=== PATIENT | female | born 1955 | race Caucasian/White ===

== ENCOUNTER 2016-03-18 23:55 | Inpatient (IN) | payer MEDICAID ==
[~2016-03-18] VITALS: Ht 167.6 cm; Wt 70.9 kg
[2016-03-19 01:17] LABS: HEMATOCRIT 41.8 % (36.0-48.0); HEMOGLOBIN 15.1 g/dL (12-16); LYMPHOCYTES 19.1 % (15-50); MCH 33.1 pg (26.0-34.0); MCHC 36.1 g/dL (31.0-37.0); MCV 91.7 fL (80.0-100.0); MEAN PLATELET VOLUME 9.7 fL (7.4-10.4); NEUTROPHILS 67.4 % (40-80); PLATELET COUNT 210 10x3/uL (130-400); RBC 4.56 10x6/uL (4.00-5.40); RDW 12.8 % (11.5-14.5); WBC 8.7 10x3/uL (4.8-10.8)
[2016-03-19 01:31] LABS: ALKALINE PHOSPHATASE 74 U/L (46-116); ALT (SGPT) 89 U/L (10-68); BILIRUBIN - TOTAL 0.63 mg/dL (0.2-1.3); CALC OSMOLALITY 263 mosm/kg (275-300); CALCIUM 9.2 mg/dL (8.5-10.1); CARBON DIOXIDE 28.4 mmol/L (21.0-32.0); CHLORIDE - SERUM 97 mmol/L (98-107); CREATININE - SERUM 0.6 mg/dL (0.6-1.3); GLUCOSE 99 mg/dL (74-106); POTASSIUM - SERUM 4.2 mmol/L (3.5-5.1); PROTEIN - SERUM 8.6 g/dL (6.4-8.2); SODIUM 133 mmol/L (136-145); UREA NITROGEN 6 mg/dL (7-18); eGFR NON AFRICAN AMERICAN > 90 mL/min (90-120)
[2016-03-19 02:54] LABS: MAGNESIUM - SERUM 1.8 mg/dL (1.8-2.4)
[2016-03-19 03:02] VITALS: BP 139/83
--- NOTE | 2016-03-19 03:02 | NUR ---
RCVD THIS 60 Y/O FEMALE FROM [facility] WITH C/O COPD EXACERBATION. PT REPORTS DRINKING A 30 PACK OF BEER PER DAY AND HAS NOT HAD HER "USUAL" TODAY. PT IS SEDATED AND DOZES OFF FREQUENTLY WHILE SPEAKING. PT IS EASILY AWAKENED WITH VERBAL STIMULI. PERRLA. PPP, S1, S2. BOWEL SOUNDS ACTIVE X4. SKIN WARM & DRY. SINGLE FURROWED TONGUE, MUCOUS MEMBRANES MOIST & PINK. CAP REFILL >3 SECONDS UPPER AND LOWER. EXPIRATORY WHEEZING NOTED IN ALL LOBES. RHONCHI NOTED ALSO NOTED IN ALL LOBES. RETRACTIONS NOTED ON INSPIRATION. WEAKNESS NOTED IN ALL EXTREMITIES. PT UP TO VOID AT THIS TIME. UNSTEADY GAIT, PT UNABLE TO STAND ON HER OWN WITHOUT NURSE ASSISTANCE. ADVISED PT TO CALL FOR ASSISTANCE WHEN GETTING UP. PT VERBALIZES UNDERSTANDING. SPOUSE AT BEDSIDE AT THIS TIME. PT DENIES PAIN. COLA PROVIDED PER PT REQUEST. BED LOW, WHEELS LOCKED, CL IN REACH. SIDE RAILS UP X2. BED ALARM IN PLACE PER FALL PRECAUTION PROTOCOL.
[2016-03-19 04:06] VITALS: BP 139/83; BMI 23.9
--- NOTE | 2016-03-19 05:21 | NUR ---
LEVAQUIN IVPB AND LIBRIUM X1 CAP GIVEN PER ORDERS. SEE EMAR. PT DENIES FURTHER NEEDS AT THIS TIME. WILL CONTINUE TO MONITOR.
--- NOTE | 2016-03-19 06:55 | NUR ---
LEVAQUIN FINISHED INFUSING, NS RESTARTED AT 50ML TO FLUSH LINE
--- NOTE | 2016-03-19 07:00 | NUR ---
SHIFT REPORT TO DAY SHIFT
--- NOTE | 2016-03-19 07:05 | NUR ---
PT KENNEL WORKER LIGHT, PT PULLED IV OUT, PUMP TURNED OFF, CHANGED PINK PAD, TOP SHEET, BLANKET, AND GOWN DUE TO BLOOD, TIP OF IV INTACT, PRESSURE HELD, BANDAID APPLIED, PT REQUESTED AND SERVED COLA, BED ALARM REATTACHED AND WORKING PROPERLY, PT DENIES FURTHER NEEDS
--- NOTE | 2016-03-19 07:15 | NUR ---
PT WAS RECEIVED THIS AM LYING IN BED. SHE OFFERS NO COMPLAINTS. PT ACCIDENTLY PULLED HER IV OUT AND NEEDS TO BE RESTARTED. SHE IS AWAKE AND ALERT. LUNGS WITH WHEEZING BILATERALLY. HEART- RRR. ABD- SOFT, NONTENDER. BS+. LOWER EXTREMITIES NO EDEMA. FEET WITH REDNESS AND DRY SKIN. PT STATES THAT HER FEET HAVE BEEN LIKE THIS ALL OF HER LIFE. BED IS LOW. CALL LIGHT IN REACH AND SIDE RAILS UP X 2.
--- NOTE | 2016-03-19 07:30 | NUR ---
RESPIRATORY THERAPY HERE TO GIVE PT A BREATHING TREATMENT.
[2016-03-19 08:55] VITALS: Ht 167.6 cm; Wt 70.9 kg
--- NOTE | 2016-03-19 09:08 | NUR ---
NEW IV STARTED BY KENNETH GARY FROM [facility]. SITED IN LEFT FOREARM. NS AT [facility].
--- NOTE | 2016-03-19 09:10 | NUR ---
PT IS UP TO BATHROOM. BED ALARM REMOVED. ASSISTED PT TO THE BATHROOM. PT VOIDED. REATTACHED BED ALARM.
--- NOTE | 2016-03-19 10:31 | NUR ---
PT IS LYING IN BED. HER MOTHER IN LAW CALLED. CALL WAS TRANSFERRED. BED IS LOW, SIDE RAILS UP X 2 AND CALL LIGHT IN REACH. BED ALARM IS ON.
--- NOTE | 2016-03-19 12:00 | NUR ---
VANDANA HANKS, [employer] WITH DR MARC CAME BY TO SEE PT.
--- NOTE | 2016-03-19 13:03 | NUR ---
PT ASSISTED UP TO BATHROOM TO VOID. UNPLUGGED ALARM. PT BACK TO BED. REACTIVATED BED ALARM.
--- NOTE | 2016-03-19 13:07 | NUR ---
PT IS RESTING IN BED. OFFERS NO COMPLAINTS. BED IS LOW, SIDE RAILS UP X 2 AND CALL LIGHT IN REACH.
--- NOTE | 2016-03-19 13:40 | NUR ---
DR MARC IS HERE TO SEE PT. NEW ORDERS REVIEWED.
--- NOTE | 2016-03-19 14:30 | NUR ---
PHYSICAL THERAPY HERE TO WALK PT. PT TOLERATED WELL.
--- NOTE | 2016-03-19 16:02 | NUR ---
PTS FAMILY IS HERE TO SEE HER. PT IS HAPPY TO SEE THEM.
--- NOTE | 2016-03-19 18:03 | NUR ---
PT IS DOING WELL. OFFERS NO COMPLAINTS. BED IS LOW. CALL LIGHT IN REACH AND SIDE RAILS UP X 2.
--- NOTE | 2016-03-19 18:55 | HP ---
PATIENT: ALANNA RAPP MEDICAL RECORD: [id number] ACCOUNT: [id number] LOCATION:[id number] : 57 ADMISSION DATE: 03/19/16 HISTORY AND PHYSICAL EXAMINATION HISTORY OF PRESENT ILLNESS: Ms. Rapp is a 60-year-old white female patient of mine with ongoing tobacco and alcohol abuse. She presents with worsening shortness of breath, was seen in the clinic a few weeks ago and really has not gotten over it. She has continued to smoke. She drinks about 12-15 beers a day. Chest x-ray in the Emergency Room reveals no definite infiltrates, but she has failed outpatient. She is admitted with acute exacerbation of her COPD. She smokes about 2 packs per day. PAST MEDICAL HISTORY: Significant for known COPD, alcohol abuse, and tobacco abuse. ALLERGIES: None known. HOME MEDICATIONS: Include albuterol inhaler. FAMILY HISTORY: Noncontributory. SOCIAL HISTORY: The patient is . She admits to alcohol and tobacco abuse. REVIEW OF SYSTEMS: She has not had any fever. She has had some chills. She denies any chest pain. Worsening shortness of breath and wheezes. PHYSICAL EXAMINATION: GENERAL: She is comfortable at rest. She states that she gets pretty short-winded when she walks to the bathroom. HEENT: Sclerae nonicteric. HEART: Regular. LUNGS: With diminished breath sounds with some scattered wheezes. ABDOMEN: Soft. EXTREMITIES: Lower extremities reveal some rubor, no edema. SKIN: Reveals multiple tattoos. IMPRESSION: Chronic obstructive pulmonary disease exacerbation, tobacco abuse, and alcohol abuse. PLAN: IV antibiotics. Pulmonary toilet. Add inhaled long-acting beta agonist and inhaled steroids. Start some systemic steroids, i.e. Solu-Medrol. Deep venous thrombosis prophylaxis. Discussed smoking and alcohol cessation, which unfortunately, I think her chances of quitting are pretty small right now. See orders for rest of plan. TRANSINT:[id number] Voice Confirmation ID: [id number] DOCUMENT ID: [id number] HISTORY AND PHYSICAL [id number] ALANNA RAPP TORRIE MARC DO at 0259 CC: [id number] DICTATION DATE: 03/19/16 1407 LOAN APPROVER: 03/19/16 1434 ADM IN [facility] [address] [id number]
--- NOTE | 2016-03-19 19:20 | NUR ---
PM ROUNDS MADE, PT EATING ORANGE SHERBERT AND WATCHING TV, INFORMED PT THAT I WILL BE BACK SHORTLY TO DO ASSESSMENT, PT VERBALIZES UNDERSTANDING, DENIES NEEDS OR PAIN AT THIS TIME
--- NOTE | 2016-03-19 20:10 | NUR ---
RESP IN ROOM FOR TREATMENT
[2016-03-19 20:21] VITALS: BP 141/82
--- NOTE | 2016-03-19 20:25 | NUR ---
RESP FINISHED WITH TREATMENT, ASSESSMENT PER FLOW SHEET, IV IN LEFT FA INTACT WITH NO REDNESS OR EDEMA INFUSING BANANA BAG, SEE EMAR, VIA PUMP AT 125 ML/HR, PT REPORTS FLATUS, BM TODAY AND VOIDING BY SELF WITH NO DIFFICULTY, PT DENIES ANY NEEDS OR PAIN AT THIS TIME
--- NOTE | 2016-03-19 21:15 | NUR ---
PT RESTING WITH EYES CLOSED, RESP QUIET, NO DISTRESS NOTED, LEFT UNDISTURBED AT THIS TIME
--- NOTE | 2016-03-19 22:13 | NUR ---
PT RESTING WITH EYES CLOSED, AROUSES TO SOFT VERBAL STIMULATION, ADM LIBRIUM PO PER MD ORDERS WITH FRESH H20, SEE EMAR, PT DENIES NEEDS OR PAIN AT THIS TIME
--- NOTE | 2016-03-19 22:55 | NUR ---
ADM SOLUMEDROL SIVP PER MD ORDERS, SEE EMAR, PT REQUESTED AND PROVIDED EXTRA BLANKET, PT DENIES FURHTER NEEDS OR PAIN
--- NOTE | 2016-03-19 23:32 | NUR ---
PT DISTRICT PLANT SUPERINTENDENT LIGHT, PT GETTING READY FOR BED, REQUESTED BASSAM CABAN AND TO SEND BABY BACK TO NSY, BABY TO NSY VIA OPEN CRIB CART PER THIS RN, VS OBTAINED, SCD'S PLACED AND WORKING PROPERLY, PT DENIES FURTHER NEEDS
[2016-03-20 00:10] VITALS: BP 138/87
--- NOTE | 2016-03-20 00:10 | NUR ---
PT RESTING WITH EYES CLOSED, AROUSES TO SOFT VERBAL STIMULATION, VS OBTAINED, PT DENIES NEEDS OR PAIN
--- NOTE | 2016-03-20 02:40 | NUR ---
PT RESTING WITH EYES CLOSED, AROUSES TO SOFT VERBAL STIMULATION, TELEMETRY PLACED, PT DENIES NEEDS OR PAIN
--- NOTE | 2016-03-20 02:47 | NUR ---
SPOKE TO ZAY, REDEVELOPMENT SPECIALIST, HR 73 AND SINUS RHYTHM
[2016-03-20 04:41] VITALS: BP 148/79
--- NOTE | 2016-03-20 04:41 | NUR ---
PT RESTING WITH EYES CLOSED, AROUSES TO SOFT VERBAL STIMULATION, VS OBTAINED, ADM LIBRIUM PO PER MD ORDERS, SEE EMAR, PT REQUESTED AND SERVED COLA, DENIES FURTHER NEEDS
--- NOTE | 2016-03-20 05:55 | NUR ---
PT UP TO BR, VOIDED BY SELF WITH NO DIFFICULTY, REQUESTED AND PROVIDED ALOE VESTA, WASH CLOTHS, TOWELS, CLEAN GOWN AND FRESH PINK PAD, PT TO BEDSIDE SCALE, WEIGHT 144, PT BACK TO BED
--- NOTE | 2016-03-20 06:13 | NUR ---
SALINE LOCK CONVERTED TO IV, FLUSHED, NS HUNG, INFUSING VIA PUMP AT 50 ML/HR, ADM SOLUMEDROL SIVP PER MD ORDERS, LEVAQUIN STARTED AFTER SOLUMEDROL, ADM PROTONIX PO PER MD ORDERS, SEE EMAR, FRESH COLA SERVED, PT DENIES FURTHER NEEDS OR PAIN
--- NOTE | 2016-03-20 07:00 | NUR ---
SHIFT REPORT TO DAY SHIFT
[2016-03-20 07:18] LABS: BASOPHILS 0 % (0.0-2.0); EOSINOPHILS 0 % (0-7); HEMOGLOBIN 13.8 g/dL (12-16); IMMATURE GRANULOCYTES 0.2 % (0-5); LYMPHOCYTES 8.5 % (15-50); MCH 32.6 pg (26.0-34.0); MCHC 34.5 g/dL (31.0-37.0); MEAN PLATELET VOLUME 9.9 fL (7.4-10.4); MONOCYTES 9.6 % (2-11); NEUTROPHILS 81.7 % (40-80); PLATELET COUNT 237 10x3/uL (130-400); RBC 4.23 10x6/uL (4.00-5.40); RDW 12.7 % (11.5-14.5); WBC 9.3 10x3/uL (4.8-10.8)
[2016-03-20 07:19] LABS: MCV 94.6 fL (80.0-100.0)
[2016-03-20 07:48] LABS: ALBUMIN 3.4 g/dL (3.4-5.0); ALKALINE PHOSPHATASE 62 U/L (46-116); ALT (SGPT) 69 U/L (10-68); CALCIUM 8.4 mg/dL (8.5-10.1); CARBON DIOXIDE 28.8 mmol/L (21.0-32.0); CHLORIDE - SERUM 99 mmol/L (98-107); CREATININE - SERUM 0.7 mg/dL (0.6-1.3); POTASSIUM - SERUM 3.6 mmol/L (3.5-5.1); PROTEIN - SERUM 7.7 g/dL (6.4-8.2); SODIUM 135 mmol/L (136-145); eGFR NON AFRICAN AMERICAN > 90 mL/min (90-120)
[2016-03-20 07:49] LABS: CALC OSMOLALITY 273 mosm/kg (275-300); GLUCOSE 187 mg/dL (74-106); UREA NITROGEN 9 mg/dL (7-18)
--- NOTE | 2016-03-20 08:00 | NUR ---
PATIENT IS AWAKE AND ALERT, SITTING UP IN HI FOWLERS AT THIS TIME. SHE DENIES UNCONTROLLED PAIN.
--- NOTE | 2016-03-20 10:05 | NUR ---
FERCHO GIVEN HER MORNING MEDICATIONS AND SCD'S REMOVED SO THAT SHE CAN BE UP TO THE RESTROOM.
--- NOTE | 2016-03-20 11:15 | NUR ---
PATIENT RECEIVING UD. FRUSTERATED BY HER HEART MONITOR ELECTROBES. REPLACED ELECTROBES, REARRANGED GOWN, AND STRAIGHTENED BED. SHE IS FIDGITY AND TEARFUL. STATES THAT SHE JUST WANTS A CIGARETTE. OFFERED TO OBTAIN A NICOTINE PATCH. SHE STATES THAT THEY DON'T WORK FOR HER. OFFERED A STRAW TO GO WITH IT FOR MECHANICAL SATISFACTION.
--- NOTE | 2016-03-20 12:30 | NUR ---
DISCUSSED TAKING A SHOWER. SHE SAID THAT SHE HAS CLEANED UP AT THE SINK AND DECLINES TOILETRIES AT THIS TIME. HER IS GOING TO BRING HER SOME THINGS FROM HOME LATER THIS AFTERNOON WELL.
--- NOTE | 2016-03-20 14:00 | NUR ---
HERE TO ASSESS. FERCHO TEACHING REGARDING PROHIBITION TOWARD SMOKING ON THE PROPERTY REINTERATED. SHE VOICED UNDERSTANDING.
--- NOTE | 2016-03-20 15:30 | NUR ---
PATIENT UP TO THE SINK WHERE SHE WASHED HER HAIR. SHE STATES THAT SHE DOESN'T FEEL LIKE SHE HAS THE ENDURANCE FOR A SHOWER. OFFERED HER A SHOWER STOOL. DECLINED. SPOUSE HAS DELIVERED HER BELONGINGS. HER MOTHER IS ALSO PRESENT.
--- NOTE | 2016-03-20 16:32 | NUR ---
SEVERAL OF HER CHILDREN ARE HERE VISITING. SHE HAS 5 LIVING CHILDREN, PLUS THEIR SPOUSES. HER OLDEST DAUGHTER LIVES IN [place]. SHE DENIES NEEDS. THEY HAVE BROUGHT HER TAKE OUT FOR SUPPER.
[2016-03-20] MEDS ORDERED: SPIRIVA18 MCG INH (17:56)
[2016-03-20] MEDS ORDERED: VENTOLIN HFA18 GM INH (17:57)
[2016-03-20] MEDS ORDERED: PROVENTIL/2.5 MG/3 M INH (17:58)
--- NOTE | 2016-03-20 18:03 | NUR ---
NEBULIZER AND O2 FROM [facility]. FERCHO TAKES RESP MEDICATIONS ONLY. FROM [facility].
[2016-03-20 19:15] VITALS: BP 165/93
--- NOTE | 2016-03-20 19:16 | NUR ---
RCVD PT FROM DAY SHIFT RN. PT SITTING UP IN BED. FAMILY AT BEDSIDE. PT DENIES PAIN AT THIS TIME. BREATH SOUNDS CLEAR/DIMINISHED IN ALL LOBES. AAOX4. S1, S2. PT CURRENTLY ON TELEMETRY DUE TO SOLU MEDROL USE. TELEMETRY SHOWS 97 SINUS RHYTHM. BOWEL SOUNDS ACTIVE X4. PPP. CAP REFILL >3 SECONDS. PT CURRENTLY ON 02 @ 2L VIA NC. SKIN WNL, W/D/I. PT VOIDING WITH MINIMAL ASSITANCE WITH AMBULATION ALTHOUGH STILL UNSTEADY GAIT. PT DENIES NEEDS AT THIS TIME. WILL CONTINUE TO MONITOR. BED LOW. WHEELS LOCKED. CL IN REACH. SIDE RAILS UP X2.
--- NOTE | 2016-03-20 20:42 | NUR ---
PT SITTING UP IN BED. FAMILY AT BEDSIDE. PT REQUESTS ROOM DOOR BE LEFT OPEN. PT REQUESTS & RECEIVES MESH PANTIES AND PADS. PT DENIES FURTHER NEEDS AT THIS TIME.
--- NOTE | 2016-03-20 21:30 | NUR ---
RN TO BEDSIDE. SOLUMEDROL AND LIBRIUM GIVEN PER ORDERS. SEE EMAR. PT DENIES FURTHER NEEDS AT THIS TIME. WILL CONTINUE POC.
[2016-03-21 00:09] VITALS: BP 158/83
--- NOTE | 2016-03-21 00:38 | NUR ---
PT COUGHING, RN TO ROOM. PT UPSET WITH VISITORS WHO SHE STATES ARE HER SON'S AND KEEP ARGUEING. VISITORS ASK TO LEAVE ROOM D/T PT BEING, ONE SON LEFT VOLUNTARILY. PT INCONTINENT OF BLADDER. ASSIST TO BATHROOM, PT WASH TU AREA, RN CLEANSED BACK. GOWN AND LINEN CHANGE DONE. PT BACK TO BED RESTING COMFORTABLY AT THIS TIME. PT REQUESTED ATIVAN D/T "FEELING REALLY ANXIOUS." UNABLE TO PULL MED FROM [facility], HS NOTIFIED AND TO FLOOR TO ASSIST RN WITH OBTAINING ATIVAN PER ORDERS. ORDER SENT TO MED/SURG [facility]. RN AND AUDIT REVIEWER TO MED/SURG TO GET MEDICATION.
--- NOTE | 2016-03-21 00:59 | NUR ---
PT RESTING WITH EYES CLOSED UPON RN ENTERING ROOM. OPENED EYES, STATES THAT SHE CONTINUES TO FEEL ANXIOUS. ATIVAN GIVEN SIVP OVER 4 MINUTES VIA LEFT FOREARM PIV.
--- NOTE | 2016-03-21 03:54 | NUR ---
RN TO BEDSIDE. PT LYING ON LT SIDE. EYES CLOSED. RESP EVEN & UNLABORED. PT WOKEN TO TAKE LIBRIUM PER ORDERS. SEE EMAR. PT TOLERATED WELL. PT DENIES FURTHER NEEDS. WILL CONTINUE TO MONITOR.
[2016-03-21 04:18] VITALS: BP 145/68
--- NOTE | 2016-03-21 04:18 | NUR ---
ROUNDS MADE. V/S ASSESSED AT THIS TIME. PT WAKES WITH VERBAL AND PHYSICAL STIMULI. PT DENIES NEEDS AT THIS TIME. WILL CONTINUE TO MONITOR.
--- NOTE | 2016-03-21 05:30 | NUR ---
PROTONIX AND LEVAQUIN GIVEN PER ORDERS. SEE EMAR. PT CONFUSED UPON AWAKENING AND TRIES TO PULL IV LINE OFF. PT ORIENTED TO TIME AND PLACE. AFTER 5 MINS PT APPEARS ORIENTED AND IS MORE AWAKE. PT DENIES FURTHER NEEDS AT THIS TIME.
--- NOTE | 2016-03-21 05:48 | NUR ---
PT FAMILY MEMBER TO DESK REPORTING THAT BED IS "SOAKED." WILL CHANGE LINENS AT THIS TIME.
--- NOTE | 2016-03-21 06:03 | NUR ---
CLEAN LINENS, GOWN PROVIDED AT THIS TIME. INCONTINENT OF BLADDER. PANTIES AND PADS PROVIDED. PT BACK TO BED. SCD'S ON, CONNECTED TO PUMP AND PUMP FUNCTIONING. PT DENIES FURTHER NEEDS AT THIS TIME.
[2016-03-21 07:15] VITALS: BP 169/99
--- NOTE | 2016-03-21 07:15 | NUR ---
PT AMBULATES BACK TO BED FROM BR. MANDY ACTIVITY WELL. SCDS BACK ON BLE. PUMP ON. VSS. PT REQUESTS AND RECEIVES COLA.
--- NOTE | 2016-03-21 08:00 | NUR ---
PT AWAKE, ALERT, ORIENTED, SITTING UP IN BED, SON AT BEDSIDE. ALARM ON. TELEMETRY SHOWING SR HR 97. NO NEEDS AT THIS TIME. REG DIET PROVIDED.
--- NOTE | 2016-03-21 08:33 | NUR ---
RT HERE FOR UPDRAFTS.
--- NOTE | 2016-03-21 09:08 | NUR ---
IV SITE IN LEFT WRIST LEAKING, PAINFUL. D/C'D CATH INTACT. RESITED IN RIGHT FOREARM WITH #20 X 1. AM MEDS GIVEN. PT REFUSED NICTINE PATCH.
--- NOTE | 2016-03-21 09:55 | NUR ---
SITTING UP IN BED, 02 ON AT 2L. COUGHING INTERMITTENTLY.
--- NOTE | 2016-03-21 10:37 | NUR ---
PT CONTINUES TO SIT UP IN BED. FAMILY AT BEDSIDE.
--- NOTE | 2016-03-21 10:54 | NUR ---
PT ASKS TO GO OFF UNIT IN WHEELCHAIR. LEAVES UNIT ACCOMPANIED BY FAMILY. ADVISED WOULD NOT REC SMOKING.
--- NOTE | 2016-03-21 11:25 | NUR ---
PT RET'S TO UNIT VIA W/C. UP AND ABOUT IN ROOM.
--- NOTE | 2016-03-21 11:49 | NUR ---
PT RET'D TO BED, SCD'S IN PLACE.
--- NOTE | 2016-03-21 11:58 | NUR ---
PT LINENS CHANGED, CLEAN GOWN AND UNDERWEAR PROVIDED.
--- NOTE | 2016-03-21 12:07 | NUR ---
REG DIET SERVED.
--- NOTE | 2016-03-21 13:21 | NUR ---
VANDANA HANKS, SIMIN, HERE TO VISIT.
--- NOTE | 2016-03-21 13:54 | NUR ---
IV FLUIDS CONNECTED TO EXISTING SL ORDERED.
--- NOTE | 2016-03-21 14:48 | NUR ---
IVF RATE DECREASED TO 75CC/HR PER ORDER.
[2016-03-21 15:22] VITALS: BP 172/88
--- NOTE | 2016-03-21 15:23 | NUR ---
PT SITTING UP IN BED. O2 ON @2L PER N/C. MOUTH SWABS PROVIDED.
--- NOTE | 2016-03-21 16:05 | NUR ---
RT HERE FOR UPDRAFT.
--- NOTE | 2016-03-21 17:18 | NUR ---
REG DIET PROVIDED. FAMILY VISITING.
--- NOTE | 2016-03-21 17:45 | NUR ---
RT HERE FOR TREATMENTS.
--- NOTE | 2016-03-21 18:05 | NUR ---
PT C/O BEING HOT. SIMONE FIGUEROA.
--- NOTE | 2016-03-21 18:14 | NUR ---
PT UP TO W/C AND OFF UNIT WITH FAMILY.
--- NOTE | 2016-03-21 19:00 | NUR ---
BACK IN HER ROOM.
[2016-03-21 19:15] VITALS: BP 158/93
--- NOTE | 2016-03-21 19:15 | NUR ---
INTRODUCED SELF. V/S TAKEN. BP 158/93. ASSESSMENT DONE. STATUS Dx: EXACERBATION OF COPD / ETOH ABUSE. ON IVF NS + VITAMINS TO R FA @ 75cc/hr. IV SITE OK. O2 SAT 100% @ 2L/NC. SCD's ON TO BOTH LOWER EXTREMITIES TO PREVENT DVT. ON TELEMETRY--SINUS RHYTHM. DENIES PAIN AT THIS TIME. BREATH SOUNDS WITH EXPIRATORY WHEEZES TO BOTH LOWER LOBES.
--- NOTE | 2016-03-21 22:01 | NUR ---
EYES CLOSED. AWAKEN FOR MEDICATION. SEE E-MAR.
[2016-03-21 23:30] VITALS: BP 141/68
--- NOTE | 2016-03-21 23:30 | NUR ---
V/S RECHECKED--BP 141/68. RT HERE TO GIVE BREATHING TREATMENT.
--- NOTE | 2016-03-22 02:48 | NUR ---
RT HERE TO GIVE UPDRAFT BREATHING TREATMENT.
[2016-03-22 04:06] VITALS: BP 147/90
--- NOTE | 2016-03-22 04:06 | NUR ---
LIBRIUM 25mg 1cap GIVEN SCHED. SEE E-MAR. V/S STABLE.
--- NOTE | 2016-03-22 04:35 | NUR ---
LEVAQUIN 750mg IVPB INFUSING. NO ADVERSE REACTION NOTED.
--- NOTE | 2016-03-22 06:00 | NUR ---
PROTONIX 40mg 1tab PO GIVEN. SEE E-MAR. SLEPT FAIRLY WELL DURING THE NIGHT. CONTINUING PLAN OF CARE.
--- NOTE | 2016-03-22 06:16 | NUR ---
IV CONVERTED TO SALINE LOCK. COMPUTER NETWORK AND SYSTEMS ENGINEER HERE TO DRAW AM LAB.
--- NOTE | 2016-03-22 06:31 | NUR ---
RT HERE FOR BREATHING TRATMENTS.
[2016-03-22 06:48] LABS: BASOPHILS 0 % (0.0-2.0); EOSINOPHILS 0.3 % (0-7); HEMATOCRIT 36.4 % (36.0-48.0); HEMOGLOBIN 12.3 g/dL (12-16); IMMATURE GRANULOCYTES 0.1 % (0-5); LYMPHOCYTES 30.4 % (15-50); MCH 32.6 pg (26.0-34.0); MCHC 33.8 g/dL (31.0-37.0); MEAN PLATELET VOLUME 9.7 fL (7.4-10.4); MONOCYTES 19.1 % (2-11); NEUTROPHILS 50.1 % (40-80); PLATELET COUNT 236 10x3/uL (130-400); RBC 3.77 10x6/uL (4.00-5.40); RDW 13.1 % (11.5-14.5); WBC 7.2 10x3/uL (4.8-10.8)
[2016-03-22 06:49] LABS: MCV 96.6 fL (80.0-100.0)
[2016-03-22 07:01] LABS: ALBUMIN 2.9 g/dL (3.4-5.0); ALKALINE PHOSPHATASE 46 U/L (46-116); ALT (SGPT) 84 U/L (10-68); BILIRUBIN - TOTAL 0.29 mg/dL (0.2-1.3); CALCIUM 8.3 mg/dL (8.5-10.1); CHLORIDE - SERUM 107 mmol/L (98-107); CREATININE - SERUM 0.6 mg/dL (0.6-1.3); PROTEIN - SERUM 6.4 g/dL (6.4-8.2); SODIUM 143 mmol/L (136-145); UREA NITROGEN 10 mg/dL (7-18); eGFR NON AFRICAN AMERICAN > 90 mL/min (90-120)
[2016-03-22 07:02] LABS: CALC OSMOLALITY 282 mosm/kg (275-300); GLUCOSE 85 mg/dL (74-106); POTASSIUM - SERUM 2.8 mmol/L (3.5-5.1)
--- NOTE | 2016-03-22 07:03 | NUR ---
LAB CALLS WITH CRITICAL POTASSIUM 2.8. WILL INITIATE ELECTROLYTE PROTOCOL.
[2016-03-22 07:15] VITALS: BP 173/101
--- NOTE | 2016-03-22 07:20 | NUR ---
PT AWAKE, ALERT, SITTING UP IN BED. INTERMITTENT COUGH. SL INTACT IN RIGHT FOREARM. SCD'S IN PLACE AND OPERATIONAL. EXP WHEEZING IN BOTH UPPER LOBES. 02 ON AT 2L PER NC. TELEMETRY SR HR 90. PT C/O DRY MOUTH. MOUTH SWABS AT BEDSIDE.
--- NOTE | 2016-03-22 08:27 | NUR ---
AM MEDS GIVEN. SEE EMAR.
--- NOTE | 2016-03-22 09:21 | NUR ---
PT ASKS FOR ADULT DIAPERS DUE TO INCONTINENT OF URINE WHEN COUGHS. PROVIDED.
--- NOTE | 2016-03-22 09:30 | NUR ---
OFFERED TO ASSIST PT TO SHOWER, SHE DECLINED, SAID SHE WAS CLEANING UP USING BATH CLOTHS.
--- NOTE | 2016-03-22 10:25 | NUR ---
PT RESTING ON RIGHT SIDE. COUGHING INTERMITTENTLY.
--- NOTE | 2016-03-22 11:08 | NUR ---
UPDRAFT DONE PER RT.
--- NOTE | 2016-03-22 12:11 | NUR ---
DIET SERVED. FAMILY AT BEDSIDE.
[2016-03-22 12:38] VITALS: BP 164/76
--- NOTE | 2016-03-22 13:00 | NUR ---
PT LEAVES UNIT WITH FAMILY VIA W/C.
--- NOTE | 2016-03-22 13:48 | NUR ---
RET'D TO ROOM VIA W/C.
--- NOTE | 2016-03-22 14:13 | NUR ---
IVF'S CONNECTED TO EXISTING SL IN RIGHT FOREARM. SITTING UP IN BED, FAMILY AT BEDSIDE.
--- NOTE | 2016-03-22 14:19 | NUR ---
DR. JIMENEZ IN TO SEE PT.
--- NOTE | 2016-03-22 16:35 | NUR ---
PT RESTING IN BED, EYES CLOSED, SNORING SOFTLY.
--- NOTE | 2016-03-22 17:07 | NUR ---
LAB HERE TO DRAW K+LEVEL.
--- NOTE | 2016-03-22 17:42 | NUR ---
PT TEARFUL, " I JUST WANT TO GO HOME." ASKED TO BE UNHOOKED FROM IV SO COULD GO TO FRONT OF HOSPITAL WITH SON, AND REQUESTED TO WAIT FOR HIM UP THERE WHILE HE WENT TO STORE. ADVISED NOT REC, WOULD NOT BE SAFE FOR HER. UP TO BR. BED PADS CHANGED, ADULT DIAPER LEAKED URINE PT HAD COUGHING EPISODE.
--- NOTE | 2016-03-22 17:52 | NUR ---
RT HERE FOR UPDRAFT.
--- NOTE | 2016-03-22 18:22 | NUR ---
PT RETURNS TO UNIT WITH SON. IVF'S RECONNECTED.
[2016-03-22 19:25] VITALS: BP 198/108
--- NOTE | 2016-03-22 19:25 | NUR ---
AWAKE DURING INITIAL ROUNDS. RE-INTRODUCED SELF. V/S TAKEN. BP 198/108. PATIENT "STRESSED" OVER SOME "FAMILY ISSUES." ASSESSMENT DONE. STATUS Dx: EXACERBATION OF COPD/ETOH ABUSE. IVF WITH MVI TO R FA @ 75cc/hr. IV SITE OK. O2 SAT 99% ON 2L/NC. TELEMETRY ON. SCD's TO BOTH LOWER EXTREMITIES. EXPIRATORY WHEEZES NOTED FROM BOTH LUNGS. FAMILY MEMBER IN THE ROOM.
--- NOTE | 2016-03-22 19:36 | NUR ---
RT HERE TO GIVE BREATHING TREATMENT.
--- NOTE | 2016-03-22 21:17 | NUR ---
SOLU-MEDROL 40mg SIVP GIVEN. SEE E-MAR.
--- NOTE | 2016-03-22 22:06 | NUR ---
LIBRIUM 25mg 1cap PO GIVEN SCHED EVERYU 6hrs. SEE E-MAR.
--- NOTE | 2016-03-22 22:45 | NUR ---
RT HERE TO GIVE BREATHING TREATMENT.
[2016-03-23] VITALS (8 sets, daily range): BP systolic 139–199; BP diastolic 75–110
--- NOTE | 2016-03-23 | NUR ---
EYES CLOSED. LEFT UNDISTURBED.
--- NOTE | 2016-03-23 02:33 | NUR ---
RT HERE TO GIVE BREATHING TREATMENT.
--- NOTE | 2016-03-23 03:00 | NUR ---
UP TO THE BATHROOM. VOIDED.
--- NOTE | 2016-03-23 03:10 | NUR ---
V/S TAKEN. BP ELEVATED--199/110. PT "STRESSED" OVER SOME FAMILY ISSUES. ENCOURAGED PT TO RELAX AND NOT STRESS HERSELF.
--- NOTE | 2016-03-23 03:40 | NUR ---
NURSING AUTOMATIC LATHE OPERATOR NOTIFIED OF PT's CONDITION AND TO GET A SECOND OPINION. SUGGESTED TO GIVE PT HER PRN ORDER FOR ATIVAN TO CALM HER DOWN. WENT WITH AUTOMATIC LATHE OPERATOR TO CUSTODIAL TO GET ATIVAN MEDICATION.
--- NOTE | 2016-03-23 04:00 | NUR ---
ATIVAN 1mg SIVP GIVEN FOR "ANXIETY." LIBRIUM 25mg PO GIVEN SCHED EVERY 6hrs. SEE E-MAR.
--- NOTE | 2016-03-23 04:03 | NUR ---
BP 179/103.
--- NOTE | 2016-03-23 05:55 | NUR ---
STONE LAYOUT MARKER HERE TO DRAW AM LAB.
[2016-03-23 06:23] LABS: BASOPHILS 0 % (0.0-2.0); EOSINOPHILS 0 % (0-7); HEMATOCRIT 37.4 % (36.0-48.0); HEMOGLOBIN 12.5 g/dL (12-16); IMMATURE GRANULOCYTES 0.4 % (0-5); LYMPHOCYTES 12.7 % (15-50); MCH 32.3 pg (26.0-34.0); MCHC 33.4 g/dL (31.0-37.0); MCV 96.6 fL (80.0-100.0); MEAN PLATELET VOLUME 9.9 fL (7.4-10.4); MONOCYTES 12.4 % (2-11); NEUTROPHILS 74.5 % (40-80); PLATELET COUNT 230 10x3/uL (130-400); RBC 3.87 10x6/uL (4.00-5.40); RDW 13.4 % (11.5-14.5); WBC 7.3 10x3/uL (4.8-10.8)
--- NOTE | 2016-03-23 06:30 | NUR ---
UP TO THE BATHROOM. VOIDED. GOWN CHANGED. SLEPT FAIRLY DURING THE NIGHT. CONTINUING PLAN OF CARE.
[2016-03-23 06:39] LABS: ALKALINE PHOSPHATASE 50 U/L (46-116); BILIRUBIN - TOTAL 0.36 mg/dL (0.2-1.3); CALCIUM 8.4 mg/dL (8.5-10.1); CARBON DIOXIDE 30.3 mmol/L (21.0-32.0); CHLORIDE - SERUM 104 mmol/L (98-107); CREATININE - SERUM 0.6 mg/dL (0.6-1.3); POTASSIUM - SERUM 3.6 mmol/L (3.5-5.1); PROTEIN - SERUM 6.5 g/dL (6.4-8.2); SODIUM 140 mmol/L (136-145); eGFR NON AFRICAN AMERICAN > 90 mL/min (90-120)
[2016-03-23 06:47] LABS: ALT (SGPT) 110 U/L (10-68); CALC OSMOLALITY 279 mosm/kg (275-300); GLUCOSE 155 mg/dL (74-106); UREA NITROGEN 6 mg/dL (7-18)
--- NOTE | 2016-03-23 07:15 | NUR ---
PT WAS RECEIVED THIS AM LYING IN BED. SHE OFFERS NO COMPLAINTS. SHE HAD A BM EARLY THIS AM AND NOW SHE IN NOT HAVING ABDOMINAL PAIN. DR RODNEY ORDERED A SURGICAL CONSULT BECAUSE SHE HAS A HERNIA AND PT WANTED THIS CANCELLED. KENNETH IZAGUIRRE CANCELLED. GEN- PT IS AWAKE AND ALERT. LUNGS- CLEAR. HEART- RRR. PORT NOTED LEFT UPPER CHEST. PATENT. ABDOMEN SOFT, NT BS+ EXT- NO EDEMA. PT DOES NOT HAVE SCD'S BECAUSE SHE HAS BEEN AMBULATORY. SIDE RAILS UP X 2. CALL LIGHT IN REACH.
--- NOTE | 2016-03-23 07:30 | NUR ---
PT WAS RECEIVED LYING IN BED. SHE IS DOING A BREATHING TREATMENT. GEN- PT IS AWAKE AND ALERT. LUNGS WITH WHEEZING. NOTED BILATERALLY. HEART- RRR. ABD- SOFT, NT, BS +. EXT- NO EDEMA. PT HAS BEEN AMBULATORY IN HER ROOM. NIGHT NURSE STATES THAT PTS BP WAS ELEVATED LAST PM. STATES IT WAS DUE TO FAMILY ISSUES. WHEN I ASKED PT THIS AM ABOUT THIS SHE STARTED CRYING AND STATED THEY WERE MOVING SOME OF HER STUFF OUT AND SHE MAY NOT HAVE ANYTHING WHEN SHE GETS OUT. TOLD PT TO TRY AND RELAX AND I WOULD SEE WHAT I CAN DO. CASE MANAGEMENT CONSULTED. BED IS LOW. CALL LIGHT IN REACH AND SIDE RAILS UP X 2.
--- NOTE | 2016-03-23 08:45 | NUR ---
PTS H&h WAS7.9 AND 25.8/ CALLED DR Gray AND HE ORDERED 2 UNITS OF PRBC'S. BLOOD ORDERED. CONSENT SIGNED.
--- NOTE | 2016-03-23 10:45 | NUR ---
I CALLED CASE MANAGEMENT AND TALKED TO ALYSIA. SHE IS COMING TO SEE PT. WHEN I QUESTIONED HER ABOUT FAMILY MOVING THINGS. SHE STATES THAT THEY ARE PACKING UP SOME OF HER THINGS BECAUSE SHE DOES NOT NEED TO BE AROUND DUST.
--- NOTE | 2016-03-23 12:19 | NUR ---
PT IS SLEEPING. BED IS LOW. CALL LIGHT IN REACH AND SIDE RAILS UP X 2.
--- NOTE | 2016-03-23 13:24 | NUR ---
Is the patient Alert and Oriented? Yes 0 * PCP DR Cristino Troy 0 * Pharmacy [facility] 0 * Preadmission Environment Home with Family 0 * ADLs Partial Dependent 0 * Equipment Oxygen 0 * Other Equipment Nebulizer Denies any other DME 0 * List name and contact numbers for known caregivers / representatives who currently or will assist patient after discharge: Jacob Fowler- significant other for 26 yrs [phone] * Community resources currently utilized None 0 * Please name any agencies selected above. N/A 0 * Additional services required to return to the preadmission environment? No 0 * Can the patient safely return to the preadmission environment? Yes 0 * Has this patient been hospitalized within the prior 30 days at any hospital? No 0
--- NOTE | 2016-03-23 13:25 | NUR ---
CM met w/ patient at the bedside. Her face sheet states she lives in [place], [place]. She states she physically lives in [place], [place]. She has lived w/ MR Sharda, significant other, for 26 yrs. She was tearful this early AM and during CM visit because her S/O and ex-daughterin law are cleaning her house. They are dusting and she feels they are packing away her belonging. She likes to look at her knick knacks. This brings her pleasure. She feels they are not respecting her. States "I am not yet". CM advised they may be worried about the dust exacerabting her COPD. She wants to go home to see what is happening. CM advised she may need 1-2 more days as per his note 03/22/16. Patient has been experiencing difficulty getting her respiratory medications secondary to a SSI issue. She has made multiple calls and reports she finally s/w a channel process supervisor at [facility], Georgette. She states Georgette stated insurance issue was [facility]' fault. Georgette was to correct the problem and forward appropriate paperwork to the pharmacy and MD office. CM telephoned [facility]. Spoke with Nuno. She will f/u w/ Medicaid in the AM. Office is closed today for state and federal holiday. Patient has stationary and portable oxygen/ nebulizer w/ [facility]. She denies any additional DME needs. Pharmacy provider is [facility]. PCP- DR Troy. Her children will provide transportation to home. CM to follow to assist as is appropriate.
--- NOTE | 2016-03-23 14:45 | NUR ---
PT IS SLEEPING. SHE IS EASY TO AROUSE. MULTI VITAMIN IV BAG HUNG PER EMAR. BED IS LOW. CALL LIGHT IN REACH. SIDE RAILS UP X 2.
--- NOTE | 2016-03-23 15:26 | NUR ---
PTS FAMILY MEMBER IS HERE. PT IS ADAMENT ABOUT LEAVING THE FLOOR FOR A LITTLE WHILE. SHE STATES "I'M GOING STIR CRAZY". GOT PT AND WHEELCHAIR AND SALINE LOCKED IV AND PTS FAMILY MEMBER IS GOING TO WHEEL HER AROUND.
--- NOTE | 2016-03-23 17:14 | NUR ---
DA SOLANO WITH DR DYE NOTIFIED THAT PT IS CURSING LOUDLY AND BECOMING DISRUPTIVE. NOTIFIED THAT 25MG LIBRIUM WAS JUST ADMIN PO. ORDER RECEIVED TO ADMIN 1MG ATIVAN IV PER PRN ORDER. WILL ADMIN DIRECTED.
--- NOTE | 2016-03-23 17:30 | NUR ---
PT REFUSED ATIVAN. THIS RN TALKS WITH PT, PT CALMS AND IS TEARFUL BUT STILL INSISTS SHE DOES NOT WANT ATIVAN AND STATES "IT WILL JUST KNOCK ME OUT AND I WILL WAKE UP PISSED." PT OFFERED DRINK OR WARM BLANKET. PT REFUSES. PT INSTRUCTED TO NOTIFY THIS RN IF SHE WANTS ATIVAN TO RELAX OR ANY OTHER NEEDS. PT NODS HEAD AND EXPRESSES THANKS.
--- NOTE | 2016-03-23 18:09 | NUR ---
PT IS SITTING UP IN BED EATING HER DINNER. CONTINUE TO ASK FOR A CIGARETTE. SHE HAS CALMED DOWN QUITE A BIT. BED IS LOW SIDE RAILS UP X 2 AND CALL LIGHT IN REACH.
--- NOTE | 2016-03-23 19:15 | NUR ---
PM ROUNDS MADE, PT WATCHING TV, INFORMED PT THAT I WILL BE IN SHORTLY TO DO ASSESSMENT, PT VERBALIZES UNDERSTANDING, DENIES NEEDS AT THIS TIME
--- NOTE | 2016-03-23 19:15 | NUR ---
LATE ENTRY: LISET COTTO, RN RESTARTED PT'S BANANA BAG
--- NOTE | 2016-03-23 20:05 | NUR ---
ASSESSMENT PER FLOW SHEET, VS OBTAINED PER MARINA PEREZ RN, IV IN RIGHT FA INTACT WITH NO REDNESS OR EDEMA INFUSING BANANA BAG AT 75 ML/HR, PT REPORTS FLATUS, NO BM TODAY AND VOIDING WITH NO DIFFICULTY, PT VERY ANXIOUS AT THIS TIME, ADM ATIVAN SIVP PER MD ORDERS, SEE EMAR, PT REQUESTED AND SERVED LEMON SAC AND [place] SODA AND ORANGE SHERBERT, PT DENIES FURTHER NEEDS AT THIS TIME
--- NOTE | 2016-03-23 21:15 | NUR ---
PT RESTING WITH EYES CLOSED, RESP QUIET, NO DISTRESS NOTED, LEFT UNDISTURBED AT THIS TIME
--- NOTE | 2016-03-23 22:26 | NUR ---
MARINA PEREZ RN, ADM LIBRIUM PO PER MD ORDERS, SEE EMAR
--- NOTE | 2016-03-23 23:30 | NUR ---
PT RESTING WITH EYES CLOSED, AROUSES TO SOFT VERBAL STIMULATION, VS OBTAINED, PT REQUESTED AND SERVED LEMON REDD[place] SODA AND ORANGE SHERBERT, PT DENIES FURTHER NEEDS, SCD'S CONTINUE AND WORKING PROPERLY
--- NOTE | 2016-03-24 00:32 | NUR ---
PT RESTING WITH EYES CLOSED, RESP QUIET, NO DISTRESS NOTED, LEFT UNDISTURBED AT THIS TIME
--- NOTE | 2016-03-24 02:23 | NUR ---
PT RESTING WITH EYES CLOSED, RESP QUIET, NO DISTRESS NOTED, LEFT UNDISTURBED AT THIS TIME
--- NOTE | 2016-03-24 03:07 | NUR ---
RESP IN ROOM FOR TREATMENT
--- NOTE | 2016-03-24 03:30 | NUR ---
PT UP TO BR WITH ASSISTANCE, VOIDED LARGE AMOUNT BY SELF WITH NO DIFFICULTY, ASSISTED PT WITH ADULT UNDERGARMENTS, BLUE CHUX AND PINK PAD CHANGED, PT BACK TO BED, SCD'S REAPPLIED AND WORKING PROPERLY, PT REQUESTED AND SERVED COLA, DENIES FURTHER NEEDS
[2016-03-24 03:33] VITALS: BP 155/78
[2016-03-24 04:05] VITALS: BP 152/79
--- NOTE | 2016-03-24 04:05 | NUR ---
PT RESTING WITH EYES CLOSED, AROUSES TO SOFT VERBAL STIMULATION, VS OBTAINED, ADM LIBRIUM PO PER MD ORDERS, SEE EMAR, PT DENIES FURTHER NEEDS
--- NOTE | 2016-03-24 04:43 | NUR ---
RADIOLOGY HERE FOR CHEST X-RAY
--- NOTE | 2016-03-24 05:51 | NUR ---
ESTELITA DANIEL STARTED, SEE EMAR, ADM PROTONIX PO PER MD ORDERS WITH FRESH COLA, SEE EMAR, PT DENIES FURTHER NEEDS
--- NOTE | 2016-03-24 06:20 | NUR ---
LAB TO ROOM FOR AM BLOOD DRAW, PT DENIES NEEDS AT THIS TIME
[2016-03-24 06:48] LABS: BASOPHILS 0.1 % (0.0-2.0); EOSINOPHILS 0.5 % (0-7); HEMATOCRIT 36.7 % (36.0-48.0); HEMOGLOBIN 12.1 g/dL (12-16); IMMATURE GRANULOCYTES 0.3 % (0-5); LYMPHOCYTES 24.9 % (15-50); MCV 97.1 fL (80.0-100.0); MEAN PLATELET VOLUME 9.7 fL (7.4-10.4); MONOCYTES 17.2 % (2-11); PLATELET COUNT 255 10x3/uL (130-400); RBC 3.78 10x6/uL (4.00-5.40); RDW 13.5 % (11.5-14.5)
[2016-03-24 06:54] LABS: WBC 9.3 10x3/uL (4.8-10.8)
--- NOTE | 2016-03-24 07:00 | NUR ---
SHIFT REPORT TO DAY SHIFT
[2016-03-24 07:27] LABS: ALBUMIN 2.6 g/dL (3.4-5.0); ALKALINE PHOSPHATASE 42 U/L (46-116); ALT (SGPT) 117 U/L (10-68); BILIRUBIN - TOTAL 0.41 mg/dL (0.2-1.3); CALCIUM 8.2 mg/dL (8.5-10.1); CARBON DIOXIDE 31.1 mmol/L (21.0-32.0); CHLORIDE - SERUM 107 mmol/L (98-107); CREATININE - SERUM 0.6 mg/dL (0.6-1.3); POTASSIUM - SERUM 3.2 mmol/L (3.5-5.1); PROTEIN - SERUM 5.9 g/dL (6.4-8.2); SODIUM 144 mmol/L (136-145); eGFR NON AFRICAN AMERICAN > 90 mL/min (90-120)
[2016-03-24 07:29] LABS: CALC OSMOLALITY 284 mosm/kg (275-300); GLUCOSE 82 mg/dL (74-106); UREA NITROGEN 9 mg/dL (7-18)
[2016-03-24 07:50] VITALS: BP 164/83
--- NOTE | 2016-03-24 07:50 | NUR ---
PT RECEIVED SITTING UP IN BED RECEIVING BREATHING TREATMENT. VSS. HEART RHYTHM REGULAR. LUNG SOUNDS DIMINISHED BILATERALLY. BOWEL SOUNDS ACTIVE X4 QUADRENTS. ABD SOFT NON-TENDER. SCDS ON. NON SKID SOCKS ON. PT STATES "I AM READY TO GO HOME." DENIES OTHER NEEDS AT THIS TIME. BED IN LOWEST POSITION. PHONE AND CALL LIGHT WITHIN REACH. SIDE RAILS UP X2.
--- NOTE | 2016-03-24 08:06 | NUR ---
PT SITTING UP IN BED. ADMINISTERED STERAPRED TABLETS. PT DENIES OTHER NEEDS AT THIS TIME. BED IN LOWEST POSITION. PHONE AND CALL LIGHT WITHIN REACH. SIDE RAILS UP X2.
--- NOTE | 2016-03-24 09:11 | NUR ---
Nutrition Follow Up: Pt reported that she did not like the food. RD offered to get her another tray; asked pt if there was anything that she wanted. Pt refused stating that she was not hungry and did not want anything at this time. RD asked pt about Ensure stating that it would provide calories/protein and serve as a meal replacement. Pt refused stating that she had had this before and "it was okay but I do not want it at this time." RD encouraged pt to increase po intake and to make staff aware of any food preferences. Pt stated that she understood. Diet: Regular - no po intake recorded in chart at this time Wt gain of 8# since admit Labs noted Meds: Prednisone, Zofran, Banana Bag, MV Pt may benefit from an appetite stimulant. Rec continue current diet. Will honor food preferences. RD following.
--- NOTE | 2016-03-24 09:30 | NUR ---
PT SITTING UP IN BED. ADMINISTERED LIBRIUM PO. LOVENOX INJECTION TO RLQ OF ABDOMEN. PT REFUSED NICODERM PATCH. DENIES FURTHER NEEDS. BED IN LOWEST POSITION. PHONE AND CALL LIGHT WITHIN REACH SRU X2.
--- NOTE | 2016-03-24 10:22 | NUR ---
CLOSED FERCHO'S DOOR. SHE WAS TALKING LOUDLY ON THE PHONE, USING CURSE WORDS. SHE IS ANXIOUS TO GO HOME FROM WHAT I OVER HEARD.
--- NOTE | 2016-03-24 10:40 | NUR ---
PT SITTING UP IN BED. DENIES NEEDS AT THIS TIME. BED IN LOWEST POSITION. PHONE AND CALL LIGHT WITHIN REACH. SIDE RAILS UP X2.
[2016-03-24] MEDS ORDERED: DIFLUCAN100 MG PO ×3 (10:43→11:01)
[2016-03-24] MEDS ORDERED: LEVAQUIN750 MG PO ×3 (10:43→11:01)
[2016-03-24] MEDS ORDERED: ATIVAN1 MG PO ×3 (10:43→11:01)
--- NOTE | 2016-03-24 11:30 | NUR ---
DR. DYE IN ROOM WITH PT. NO NEEDS NOTED AT THIS TIME.
--- NOTE | 2016-03-24 12:00 | NUR ---
REMOVED PTS IV. CATHETER INTACT. PT REQUESTED BAG FOR BELONGINGS. DENIES OTHER NEEDS. BED IN LOWEST POSITION. PHONE AND CALL LIGHT WITHIN REACH. SIDE RAILS UP X2.
--- NOTE | 2016-03-24 12:42 | NUR ---
REVIEWED DISCHARGE INSTRUCTIONS WITH THE PATIENT. SHE HAS A PRESCRIPTION FOR ATIVAN. SHE STATES THAT LONG SHE HAS THIS, SHE WILL NOT DRINK. SHE ALSO UNDERSTANDS THAT HER ANTIBIOTIC AND ANTIFUNGAL HAVE BEEN CALLED IN TO [facility]. SHE INTENDS TO PICK THEM UP ON HER WAY HOME TODAY. SHE HAS CONCERN FOR THE "SLOTS" AVAILABLE FOR HER MEDICATIONS. EXPRESSED THE IMPORTANCE OF HER ANTIBIOTIC AND TO STOP DRINKING. SHE STATES THAT SHE WILL DO HER BEST AND FIGURE OUT A WAY TO GET HER MEDICATIONS.
--- NOTE | 2016-03-24 12:50 | NUR ---
KENNETH RUIZ WENT TO THE FRONT DOOR TO DELIVER SOLUMEDROL LEFT BEHIND. CELL PHONE CALL PLACED TO SEE IF SHE INTENDS TO RETURN. SHE ANSWERED HER CELL PHONE BUT DIDN'T CONVERSE [facility], [facility].
--- NOTE | 2016-03-24 13:13 | NUR ---
CALL PLACED TO VERIFY SHE INTENDS TO RETURN TO PICK THEM UP. NO ANSWER.
--- NOTE | 2016-03-24 13:15 | NUR ---
PT RETURNED TO SPECIAL SYSTEMS TECHNICIAN MEDICATION.
--- NOTE | 2016-03-25 15:30 | DS ---
PATIENT:ALANNA RAPP :57 MEDICAL RECORD: [id number] DISCHARGE SUMMARY ADMISSION DATE: 03/20/16 DISCHARGE DATE: 03/24/16 DATE OF ADMISSION: 03/20/2016 DATE OF DISCHARGE: 03/24/2016 ADMITTING DIAGNOSES: 1. Chronic obstructive pulmonary disease exacerbation. 2. Tobacco use. 3. Alcohol use. HOSPITAL COURSE: This is a lady of Dr. Troy, who was admitted with diagnoses as outlined above. Details are well-outlined in the history of the present illness, H&P. All events, lab procedures, diagnostic testing are well documented in the records. She was admitted, placed on banana bag and DT precautions to include Librium and p.r.n. Ativan. We started on antibiotics, updrafts and pulmonary updrafts. Physical therapy was consulted. She was ambulating well on her own. She was ordered a nicotine patch, which she refused most of the time. Overall, she improved. She was started on steroids and weaned down. She is stable for dismissal home today. Dr. Troy discussed smoking and alcohol cessation with her. She has not craved any beer since she has been here. She is still craving a cigarette, but she is stable for dismissal home today. She was given scripts for Ativan, one more day of Levaquin, and 4 days of Diflucan for some possible thrush on her tongue. Please refer to med rec. DIAGNOSES: 1. Chronic obstructive pulmonary disease exacerbation. 2. Tobacco use. 3. Alcohol use. Greater than 30 minutes was spent on this discharge. TRANSINT:[id number] Voice Confirmation ID: [id number] DOCUMENT ID: [id number] Dictated By: VANDANA HANKS RN I have interviewed/examined the above patient and agree with these documented findings. CARMEN DYE MD at 1530 at 1554 CC: [id number] DICTATION DATE: 03/24/16 1602 SHOE CASER: 03/24/16 1926 DIS IN 03/24/16 [facility] [address] [place] [address]
== END 2016-03-24 15:52 | disposition home or self-care (01) | DRG 191 ==
LOC: D.ER 23:55 → OBSVTIME 03-19 02:28 → D.WS 03-19 02:28 → OBSVTIME 03-20 14:40 → D.WS 03-24 15:52
PROVIDERS: Emergency Medicine; Family Medicine; ADMIT Family Medicine
DX: J44.1 Chronic obstructive pulmonary disease with (acute) exacerbation (principal); F17.203 Nicotine dependence unspecified, with withdrawal; E87.1 Hypo-osmolality and hyponatremia; F10.20 Alcohol dependence, uncomplicated; I16.0 Hypertensive urgency; R74.0 Nonspecific elevation of levels of transaminase and lactic acid dehydrogenase [LDH]

== ENCOUNTER 2016-08-10 14:14 | Inpatient (IN) | payer MEDICAID ==
[~2016-08-10] VITALS: Ht 167.6 cm; Wt 69.7 kg
--- NOTE | ~2016-08-10 | EC ---
PATIENT:ALANNA RAPP DATE OF SERVICE: 08/10/16 SEX: F MEDICAL RECORD: [id number] DATE OF : [birth year] LOCATION:D.MS [facility] AGE OF PATIENT: 60 ADMISSION DATE: 08/10/16 REFERRING PHYSICIAN: INTERPRETING PHYSICIAN: LEXI TA M.D. ECHOCARDIOGRAM REPORT ECHO CHARGES 4 ECHO COMPLETE CLINICAL DIAGNOSIS: DYSPNEA ECHOCARDIOGRAPHIC MEASUREMENTS (adult normal given) AC root (d.<3.7cm) 3.4 LV Septum d (<1.2 cm> 1.1 Valve Excursion 1.7 LV Septum (systole) 1.3 Left Atria (s.<4.0cm> 3.7 LVPW d(<1.2cm) 1.5 RV (d.<2.3cm) 3.6 LVPW (sytole) 1.6 LV diastole(<5.6CM) 4.1 MV E-F(>70mm/sec) LV systole 3.0 LVOT Diameter 1.8 MV exc.(>10mm) 1.4 Est.ejection fraction (50-75%) Pericardial Effusion N DOPPLER: LVIT A 89.0 E 77.0 LA RVSP 27 LVOT 104 AOP1/2T Asc. Ao 142 RVOT 69 RA PA 121 AV Gradient Peak 8.09 AV Mean 4.05 AV Area 2.0 MV Gradient Peak 4.89 MV Mean 1.92 MV Area COMMENTS: Paid Search Manager: Natasha VAUGHN Pathology Technician:2 Dr. Ta TAPE# PACS DATE OF SERVICE: 08/11/2016 INDICATION: Dyspnea. DESCRIPTION: Left ventricle appears normal size and function. No wall motion abnormalities are noted. Estimated ejection fraction is 55%. Mitral valve is structurally normal. There is trivial regurgitation seen. Left atrium is normal size. The aortic valve is trileaflet. There is no stenosis or regurgitation seen. Right ventricle is mildly dilated. Tricuspid valve is structurally normal. There is mild regurgitation noted. Right atrium is normal ECHOCARDIOGRAM REPORT [id number] ALANNA RAPP size. There is no pericardial effusion seen. IMPRESSION: 1. Normal left ventricular size and function, ejection fraction 55%. 2. Trivial mitral regurgitation. 3. Mild tricuspid regurgitation. TRANSINT:[id number] Voice Confirmation ID: [id number] DOCUMENT ID: [id number] LEXI TA M.D. CC: [id number] DICTATION DATE: 08/12/16 0749 UNDER GROUND MINER: 08/12/16 1029 ADM IN [facility] [address] [place] [id number]
[~2016-08-10 14:14] MED LIST: ATIVAN1 MG PO; DIFLUCAN100 MG PO; LEVAQUIN750 MG PO; PROVENTIL/2.5 MG/3 M INH; SPIRIVA18 MCG INH; VENTOLIN HFA18 GM INH
[2016-08-10 14:56] LABS: BASOPHILS 0 % (0-2); EOSINOPHILS 0 % (0-7); HEMATOCRIT 41.8 % (36.0-48.0); HEMOGLOBIN 14.7 g/dL (12-16); IMMATURE GRANULOCYTES 0.5 % (0-5); LYMPHOCYTES 1.9 % (15-50); MCH 32.3 pg (26.0-34.0); MCHC 35.2 g/dL (31.0-37.0); MCV 91.9 fL (80.0-100.0); MEAN PLATELET VOLUME 9.3 fL (7.4-10.4); MONOCYTES 1.9 % (2-11); NEUTROPHILS 95.7 % (40-80); RBC 4.55 10x6/uL (4.00-5.40); RDW 12.4 % (11.5-14.5); WBC 5.8 10x3/uL (4.8-10.8)
[2016-08-10 14:59] LABS: PLATELET COUNT 164 10x3/uL (130-400)
[2016-08-10 15:19] LABS: ALBUMIN 3.1 g/dL (3.4-5.0); ANION GAP 15.5 mmol/L (8-16); BILIRUBIN - TOTAL 1.22 mg/dL (0.2-1.3); CALCIUM 8.6 mg/dL (8.5-10.1); CARBON DIOXIDE 22.8 mmol/L (21.0-32.0); POTASSIUM - SERUM 3.3 mmol/L (3.5-5.1); PROTEIN - SERUM 7.9 g/dL (6.4-8.2)
[2016-08-10 17:27] LABS: APPEARANCE TURBID (CLEAR); COLOR YELLOW (YELLOW); LEUKOCYTE ESTERASE 2+ (NEGATIVE); NITRITE NEGATIVE (NEGATIVE); PROTEIN 3+ mg/dL (NEGATIVE)
[2016-08-10 17:28] LABS: BACTERIA MANY /hpf (NONE SEEN); BILIRUBIN NEGATIVE (NEGATIVE); GLUCOSE NEGATIVE (NEGATIVE); KETONE NEGATIVE (NEGATIVE); RED CELLS - URINE 0-5 /hpf (0-5); UROBILINOGEN NORMAL (NORMAL); WHITE CELLS - URINE >50 /hpf (0-5)
--- NOTE | 2016-08-10 19:51 | NUR ---
RECIEVED PT TO FLOOR. ALERT AND ORIENTED AND ABLE TO VERBALIZE NEEDS. IV IS PATENT AND FLUID BOLUS RUNNING FROM ED. O2 @ 2 PER NASAL CANNULA. VSS. PT DENIES ANY PAIN AT THIS TIME. PT IS AMBULATORY WITH ASSISTANCE. PT IS ORIENTED TO ROOM AND USE OF CALL LIGHT. NO NEEDS ARE VERBALIZED AT THIS TIME. WILL CONTINUE TO MONITOR. SIDE RAILS ARE UP X 2. BED IS IN LOWEST POSITION. CALL LIGHT IS WITHIN REACH.
--- NOTE | 2016-08-10 22:15 | NUR ---
ADMIT ASSESSMENT COMPLETED. NO NEEDS ARE VOICED. FAMILY IS AT BEDSIDE. WILL MONITOR. SIDE RAILS X 2. BED LOW. CALL LIGHT IN REACH.
[2016-08-10] MEDS ORDERED: EFFEXOR75 MG PO (23:28)
[2016-08-10] MEDS ORDERED: SYMBICORT 16010.2 GM INH (23:29)
[2016-08-10 23:30] VITALS: BP 116/91; BMI 23.9
[2016-08-11 04:00] VITALS: BP 106/64
[2016-08-11 07:30] LABS: HEMATOCRIT 39.4 % (36.0-48.0); MCH 32.6 pg (26.0-34.0); MCHC 35.5 g/dL (31.0-37.0); MCV 91.8 fL (80.0-100.0); MEAN PLATELET VOLUME 9.7 fL (7.4-10.4); PLATELET COUNT 162 10x3/uL (130-400); RBC 4.29 10x6/uL (4.00-5.40); RDW 12.4 % (11.5-14.5); WBC 32.2 10x3/uL (4.8-10.8)
[2016-08-11 07:57] LABS: LYMPHOCYTES 1 % (15-50); MONOCYTES 12 % (2-11); NEUTROPHILS 71 % (40-80); PLATELET ESTIMATE NORMAL
[2016-08-11 07:59] LABS: ANION GAP 12.6 mmol/L (8-16); CALCIUM 8.8 mg/dL (8.5-10.1); CARBON DIOXIDE 28.5 mmol/L (21.0-32.0)
[2016-08-11 08:00] LABS: CREATININE - SERUM 1.5 mg/dL (0.6-1.3); POTASSIUM - SERUM 4.1 mmol/L (3.5-5.1)
--- NOTE | 2016-08-11 08:19 | NUR ---
Patient Name: ALANNA RAPP Admission Status: ER Accout number: [id number] Admission Date: 08-10-2016 : 1955 Admission Diagnosis: Attending: SAMARA Current LOS: 1 Anticipated DC Date: 08-14-2016 Planned Disposition: Home Primary Insurance: MEDICAID [place] Discharge Planning Comments: CM MET WITH PATIENT AND FRIEND (SHERRY) REGARDING D/C NEEDS AND PLANS. PATIENT STATED SHE HAS A RAMP TO ENTER HOME AND NO STAIRS INSIDE. PATIENTS FRIEND STATED HE WOULD PROBABLY DRIVE HER HOME AT DISCHARGE. PATIENT STATED THEY HAVE BEEN TOGETHER FOR 27 YEARS. PATIENT IS INDEPENDENT WITH HER CARE AND STATED SHE HAS OXYGEN AT HS (2L), NEBULIZER, AND PORTABLE O2 [facility]. PATIENTS PCP IS DR. MARC AND PHARMACY IS [facility] IN [place]. PATIENT DID NOT WANT HOME HEALTH AT THIS TIME. CM WILL CONTINUE TO FOLLOW PATIENT WITH D/C NEEDS AND PLANS. PCP [facility] ([place]) [phone] SHERRY CHANG (FRIEND) [phone] Intelligence Manager: Sandy Arellano Is the patient Alert and Oriented? Yes 0 * How many steps to enter\exit or inside your home? RAMP 0 * PCP DR. MARC 0 * Pharmacy [facility] 0 * Preadmission Environment Home with Family 0 * ADLs Independent 0 * Equipment Nebulizer Oxygen 0 * Other Equipment PORTABLE O2 ([employer]) 0 * List name and contact numbers for known caregivers / representatives who currently or will assist patient after discharge: SHERRY CHANG (FRIEND) [phone] 0 * Community resources currently utilized None 0 * Additional services required to return to the preadmission environment? Yes 0 * Can the patient safely return to the preadmission environment? Yes 0 * Has this patient been hospitalized within the prior 30 days at any hospital? No 0 Grand Total: 0
--- NOTE | 2016-08-11 08:24 | NUR ---
AWAKE AND ALERT. ORIENTED X3. NO C/O AT THIS TIME. LUNGS ARE CLEAR BILATERALLY, REPORTS DRY COUGH. SKIN IS INTACT WITHOUT REDNESS. IV TO LEFT AC IS PATENT WITHOUT REDNESS AT INSERTION SITE. BREAKFAST SERVED IN ROOM. NOT EATING AT THIS TIME. REPORTS NO URINE ALL PM. WILL MONITOR. DENIES NEEDS.
[2016-08-11 08:48] VITALS: BP 94/49
--- NOTE | 2016-08-11 10:00 | NUR ---
SPOKE WITH [facility]. NEW ORDERS RECEIVED FOR ATIVAN.
--- NOTE | 2016-08-11 11:45 | NUR ---
IV TO LEFT AC LEAKING. D/C WITH CATHETER INTACT. RESITED TO RIGHT FOREARM AFTER ONE ATTEMPT WITH 20G. DENIES NEEDS.
[2016-08-11 12:35] VITALS: BP 101/65
[2016-08-11 13:28] VITALS: Ht 167.6 cm; Wt 69.7 kg
--- NOTE | 2016-08-11 14:16 | NUR ---
ATE ABOUT HALF OF LUNCH TRAY. RESTING QUIETLY WITH EYES CLOSED.
[2016-08-11 17:02] VITALS: BP 120/71
--- NOTE | 2016-08-11 17:52 | HP ---
PATIENT: ALANNA RAPP MEDICAL RECORD: [id number] ACCOUNT: [id number] LOCATION:D.MS [facility] : [birth year] ADMISSION DATE: 08/10/16 HISTORY AND PHYSICAL EXAMINATION HISTORY OF PRESENT ILLNESS: Ms. Rapp is a 60-year-old white female with known COPD and continues to smoke, who presents to the office with increasing shortness of breath, wheezing and fever of 104, had been pretty short of breath for the last few days and started running fever yesterday. She did not eat or drink anything in several days. She thinks she had a UTI. She is started on some oxygen and a chest x-ray was performed, which reveals no infiltrates. She is transferred to the Emergency Room by ambulance and subsequently now being admitted for an exacerbation of her COPD and UTI. PAST MEDICAL HISTORY: Significant for known COPD, bipolar/anxiety, depression, hypertension, chronic alcohol abuse and tobacco abuse. PAST SURGICAL HISTORY: Include section times 1, right ankle surgery in 1988 and IUD in 1995. ALLERGIES: HYDROCODONE, WHICH CAUSES VOMITING. HOME MEDICATIONS: Effexor XR 75 mg b.i.d., Symbicort 2 puffs b.i.d., albuterol inhalers and updrafts, lorazepam 1 mg b.i.d. p.r.n. and IUD in 1995. FAMILY HISTORY: Significant for heart disease and COPD. SOCIAL HISTORY: The patient is . She is disabled due to COPD. She is a smoker and drinks. REVIEW OF SYSTEMS: Significant for fever and shortness of breath with inspiration, increasing shortness of breath, wheezing, some flank pain, some dysuria with frequency, nausea and vomiting and anorexia. PHYSICAL EXAMINATION: VITAL SIGNS: Height 5 feet 6 inches, weight 146, temperature 104, BP 170/80, pulse is 142, respirations 26 and sats 92% on room air. GENERAL: She appears moderately to severely ill, was pursed lip breathing. She is using secondary muscles. She is tachypneic. HEENT: Her sclerae are nonicteric. Mucous membranes are a little dry. HEART: Regular with tachycardia. ABDOMEN: Soft. No edema. NEUROLOGIC: Without any deficits. She is a little anxious. DIAGNOSTIC DATA: Chest x-ray reveals no infiltrate. IMPRESSION: 1. Chronic obstructive pulmonary disease, exacerbation. 2. Chronic obstructive pulmonary disease, tobacco abuse and alcohol abuse. 3. UTI PLAN: Admit, see orders from ER, discussed with hospitalist service. See orders for rest of plan. TRANSINT:[id number] Voice Confirmation ID: [id number] DOCUMENT ID: [id number] HISTORY AND PHYSICAL [id number] ALANNA RAPP MATTHEW DO at 1752 CC: [id number] DICTATION DATE: 08/10/16 183 WEB FEEDER: 08/10/16 2119 ADM IN [facility] [address] [id number]
--- NOTE | 2016-08-11 19:15 | NUR ---
RECIEVED SHIFT REPORT. PT IS LYING IN BED. ALERT AND ORIENTED AND ABLE TO VERBALIZE NEEDS. IV IS PATENT AND BANANA BAG INFUSING AT THIS TIME. PT IS AMBULATORY WITH ASSISTANCE. O2 @ 2 PER NASAL CANNULA. PT DENIES ANY PAIN AT THIS TIME. NO NEEDS ARE VERBALIZED AT THIS TIME. WILL CONTINUE TO MONITOR. SIDE RAILS ARE UP X 2. BED IS IN LOWEST POSITION. CALL LIGHT IS WITHIN REACH.
--- NOTE | 2016-08-11 19:27 | NUR ---
UP TO BR WITH MIN ASSIST OF ONE. VOIDED 900CC DARK ODIFEROUS URINE. SKIN CARE PER SELF. FAMILY AT BEDSIDE. NO CHANGES NOTED. DENIES NEEDS.
--- NOTE | 2016-08-11 20:54 | NUR ---
SHIFT ASSESSMENT COMPLETED. NIGHT MEDS GIVEN WITH NO PROBLEMS. NO NEEDS ARE VOICED. WILL MONITOR. SIDE RAILS X 2. BED LOW. CALL LIGHT IN REACH.
[2016-08-12 00:04] VITALS: BP 143/85
[2016-08-12 04:00] VITALS: BP 120/73
[2016-08-12 06:10] LABS: BASOPHILS 0 % (0-2); EOSINOPHILS 0 % (0-7); HEMATOCRIT 35.4 % (36.0-48.0); HEMOGLOBIN 12.4 g/dL (12-16); IMMATURE GRANULOCYTES 0.4 % (0-5); MCV 91.2 fL (80.0-100.0); MEAN PLATELET VOLUME 10.3 fL (7.4-10.4); MONOCYTES 7.2 % (2-11); NEUTROPHILS 87.4 % (40-80); PLATELET COUNT 203 10x3/uL (130-400); RBC 3.88 10x6/uL (4.00-5.40); RDW 12.5 % (11.5-14.5)
[2016-08-12 06:43] LABS: CALCIUM 8.3 mg/dL (8.5-10.1); CARBON DIOXIDE 29.6 mmol/L (21.0-32.0); CHLORIDE - SERUM 93 mmol/L (98-107); GLUCOSE 105 mg/dL (74-106); SODIUM 130 mmol/L (136-145)
[2016-08-12 06:44] LABS: CALC OSMOLALITY 260 mosm/kg (275-300); CREATININE - SERUM 0.8 mg/dL (0.6-1.3); UREA NITROGEN 12 mg/dL (7-18); eGFR NON AFRICAN AMERICAN 78 mL/min (90-120)
--- NOTE | 2016-08-12 08:19 | NUR ---
AWAKE AND ALERT. ORIENTED X 3. NO C/O AT THIS TIME BUT REPORTS DIDN'T SLEEP WELL LAST PM. LUNGS ARE CLEAR BUT DIMINISHED THROUGHOUT LUNG RODARTE. OCCASSIONAL DRY COUGH NOTED. SKIN IS INTACT WITHOUT REDNESS. IV TO RIGHT FOREARM IS PATENT WITHOUT REDNESS AT INSERTION SITE. DENIES NEEDS. BREAKFAST SERVED IN ROOM.
[2016-08-12 08:39] VITALS: BP 128/70
--- NOTE | 2016-08-12 10:30 | NUR ---
UP TO BR PER SELF. HAD LOOSE WATERY BM AND URINATED CLEAR YELLOW URINE. DENIES NEEDS.
--- NOTE | 2016-08-12 12:00 | NUR ---
IV TO RIGHT FOREARM INFILTRATED. RESITED TO LEFT HAND. WARM MOIST HEAT APPLLIED TO AREA. TOLERATED WITHOUT DIFFICULTY.
[2016-08-12 13:22] VITALS: BP 134/82
[2016-08-12 17:30] VITALS: BP 128/71
--- NOTE | 2016-08-12 19:15 | NUR ---
RECIEVED SHIFT REPORT. PT IS LYING IN BED. ALERT AND ORIENTED AND ABLE TO VERBALIZE NEEDS. IV IS PATENT AND BANANA BAG RUNNING AT THIS TIME. PT IS AMBULATORY WITH ASSISTANCE. O2 @ 2 PER NASAL CANNULA. PT DENIES ANY PAIN AT THIS TIME. NO NEEDS ARE VERBALIZED AT THIS TIME. WILL CONTINUE TO MONITOR. SIDE RAILS ARE UP X 2. BED IS IN LOWEST POSITION. CALL LIGHT IS WITHIN REACH.
--- NOTE | 2016-08-12 19:41 | NUR ---
ATE MOST OF SUPPER. FAMILY BROUGHT FOOD IN AND SHE ATE WELL. NO CHANGES NOTED.
[2016-08-12 20:00] VITALS: BP 119/64
--- NOTE | 2016-08-12 20:54 | NUR ---
SHIFT ASSESSMENT COMPLETED. NIGHT MEDS GIVEN WITH NO PROBLEMS. NO NEEDS ARE VOICED. VISITOR AT BEDSIDE. SIDE RAILS X 2. BED LOW. CALL LIGHT IN REACH.
[2016-08-13] VITALS: BP 146/84
[2016-08-13 04:00] VITALS: BP 153/83
[2016-08-13 05:35] LABS: BASOPHILS 0.1 % (0-2); EOSINOPHILS 0.2 % (0-7); HEMATOCRIT 34.9 % (36.0-48.0); HEMOGLOBIN 12.1 g/dL (12-16); IMMATURE GRANULOCYTES 0.4 % (0-5); LYMPHOCYTES 7.5 % (15-50); MCHC 34.7 g/dL (31.0-37.0); MCV 92.3 fL (80.0-100.0); MEAN PLATELET VOLUME 10.6 fL (7.4-10.4); MONOCYTES 10.5 % (2-11); NEUTROPHILS 81.3 % (40-80); PLATELET COUNT 221 10x3/uL (130-400); RBC 3.78 10x6/uL (4.00-5.40); RDW 12.7 % (11.5-14.5)
[2016-08-13 05:59] LABS: CALC OSMOLALITY 266 mosm/kg (275-300); CALCIUM 8.4 mg/dL (8.5-10.1); CARBON DIOXIDE 27.2 mmol/L (21.0-32.0); CHLORIDE - SERUM 98 mmol/L (98-107); CREATININE - SERUM 0.7 mg/dL (0.6-1.3); GLUCOSE 119 mg/dL (74-106); POTASSIUM - SERUM 3.4 mmol/L (3.5-5.1); SODIUM 134 mmol/L (136-145); eGFR NON AFRICAN AMERICAN > 90 mL/min (90-120)
[2016-08-13 06:00] LABS: UREA NITROGEN 8 mg/dL (7-18)
[2016-08-13 08:28] VITALS: BP 144/84
[2016-08-13 12:46] VITALS: BP 153/82
--- NOTE | 2016-08-13 13:23 | NUR ---
PT IV RESITED TO RIGHT FORARM 22 GA X 1 STICK DUE TO PAIN AND REDNESS NOTED AT PIV TO LEFT WRIST. TOLERATED WELL
--- NOTE | 2016-08-13 14:46 | NUR ---
NUTRITION MONITORING & EVAL CHART REVIEWED. PT REPORTS GOOD INTAKE AHA DIET. WILL CONTINUE TO PROVIDE DIET, MONITOR INTAKE. RD FOLLOWING
--- NOTE | 2016-08-13 15:00 | NUR ---
PATIENT RESTING IN BED. PATIENT IS AWAKE, ALERT, AND ORIENTED X4. FAMILY AT THE BEDSIDE. PATIENT DENIES ANY PAIN OR NAUSEA AT PRESENT TIME. IV SITE PATENT WITHOUT ANY S/S OF INFECTION NOTED IN PATIENT'S RIGHT FOREARM. BANANA BAG INFUSING @ 125 ML/HR. OXYGEN IN USE @ 3L PER NC. PATIENT DENIES ANY NEEDS AT PRESENT TIME. CALL LIGHT IN PATIENT'S REACH. WILL MONITOR PATIENT.
[2016-08-13 17:06] VITALS: BP 141/83
--- NOTE | 2016-08-13 18:56 | NUR ---
PT WITH NO DISTRESS NOTED VOICES ALL NEDS OT STAFF CALL LIGHT IN REACH SIDE RAILS UP X 3
[2016-08-13 20:00] VITALS: BP 180/87
--- NOTE | 2016-08-13 21:23 | NUR ---
PT RESTING IN BED. ALERT AND ORIENTED. NO SIGNS OF DISTRESS NOTED. DENIES ANY NEEDS AT THIS TIME. SCHEDULED MEDS GIVEN. SHIFT ASSESSMENT COMPLETED. BED LOW. CALL LIGHT IN REACH
[2016-08-14] VITALS: BP 179/95
[2016-08-14 04:00] VITALS: BP 153/85
--- NOTE | 2016-08-14 04:07 | NUR ---
PT RESTING QUIETLY, EYES CLOSED. RESP EVEN, UNLABORED. NO DISTRESS NOTED. CONTINUE TIP FIXER'S PLAN OF CARE.
[2016-08-14 06:31] LABS: BASOPHILS 0.1 % (0-2); EOSINOPHILS 0.7 % (0-7); HEMATOCRIT 35.5 % (36.0-48.0); HEMOGLOBIN 12.1 g/dL (12-16); IMMATURE GRANULOCYTES 0.4 % (0-5); LYMPHOCYTES 14.3 % (15-50); MCH 31.6 pg (26.0-34.0); MCHC 34.1 g/dL (31.0-37.0); MCV 92.7 fL (80.0-100.0); NEUTROPHILS 69.5 % (40-80); PLATELET COUNT 227 10x3/uL (130-400); RBC 3.83 10x6/uL (4.00-5.40); RDW 12.6 % (11.5-14.5)
[2016-08-14 07:24] LABS: CALC OSMOLALITY 268 mosm/kg (275-300); CALCIUM 8.3 mg/dL (8.5-10.1); CARBON DIOXIDE 31.4 mmol/L (21.0-32.0); CHLORIDE - SERUM 99 mmol/L (98-107); CREATININE - SERUM 0.7 mg/dL (0.6-1.3); GLUCOSE 105 mg/dL (74-106); POTASSIUM - SERUM 3.1 mmol/L (3.5-5.1); SODIUM 136 mmol/L (136-145); eGFR NON AFRICAN AMERICAN > 90 mL/min (90-120)
--- NOTE | 2016-08-14 07:30 | NUR ---
RECIEVED PT DURING WALKING ROUNDS. PT RESTING COMFORTABLY IN BED WITH NO VISABLE SIGNS OF PAIN OR DISCOMFORT AT THIS TIME. ASSESSMENT DONE PER FLOWSHEET. BED IN LOW POSITION AND CALL LIGHT WITHIN REACH. WILL CONTINUE TO MONITOR.
[2016-08-14 07:32] LABS: UREA NITROGEN 5 mg/dL (7-18)
[2016-08-14 08:09] VITALS: BP 174/91
--- NOTE | 2016-08-14 09:40 | NUR ---
REMOVED LEFT FOREARM IV AT THIS TIME, WILL CONTINUE TO MONITOR.
[2016-08-14 10:59] VITALS: BP 150/65
[2016-08-14] MEDS ORDERED: NICODERM C1 PATCH .3 TRANSDERM (11:19)
[2016-08-14] MEDS ORDERED: MUCINEX600 MG PO (11:19)
[2016-08-14] MEDS ORDERED: TESSALON PERLE100 MG PO (11:20)
[2016-08-14] MEDS ORDERED: LEVAQUIN750 MG PO (11:20)
--- NOTE | 2016-08-14 13:16 | NUR ---
CM REASSESSMENT NOTE: PATIENT IS DISCHARGING HOME TODAY/DENIED HOME HEALTH STATING "I GOT PLENTY OF PEOPLE TO HELP ME DONT NEED IT"/DENIED ANY OTHER NEEDS. PARTNER OF 27 YRS. DRIVING PATIENT HOME. RESP. DID WALK TEST DID NOT NEED O2
--- NOTE | 2016-08-14 17:43 | NUR ---
IV REMOVED, DISCHARGE INSTRUCTIONS GIVEN AND PT DISCHARGED VIA WHEELCHAIR TO HOME WITH A FAMILY MEMBER.
== END 2016-08-14 17:53 | disposition home or self-care (01) | DRG 872 ==
LOC: D.ER 14:14 → D.MS 17:48
PROVIDERS: Emergency Medicine; ADMIT Family Medicine
DX: A41.9 Sepsis, unspecified organism (principal); J44.1 Chronic obstructive pulmonary disease with (acute) exacerbation; N39.0 Urinary tract infection, site not specified; J96.10 Chronic respiratory failure, unspecified whether with hypoxia or hypercapnia; N17.9 Acute kidney failure, unspecified; I10 Essential (primary) hypertension; F10.10 Alcohol abuse, uncomplicated; F17.200 Nicotine dependence, unspecified, uncomplicated

== ENCOUNTER 2017-08-03 02:21 | Inpatient (IN) | payer MEDICAID ==
[~2017-08-03] VITALS: Ht 167.6 cm; Wt 66.8 kg
--- NOTE | ~2017-08-03 | CN ---
PATIENT NAME:ALANNA NICE MEDICAL RECORD: [id number] : 57 LOCATION:D.MS [facility] ADMIT DATE: 08/03/17 ACCOUNT: [id number] CONSULTING PHYSICIAN: SARY GALO MD REFERRING PHYSICIAN: TORRIE MARC DO DATE OF CONSULTATION: 08/03/2017 CONSULT REQUESTING PHYSICIAN: Torrie Marc DO REASON FOR CONSULTATION: Acute exacerbation of COPD, pneumonia. HISTORY OF PRESENT ILLNESS: Ms. Nice is a 61-year-old female who is smoking 2 packs per day, chronic hypoxic respiratory failure on 2 liters oxygen. The patient is sick for the last few days. She is coughing. She is wheezing. The cough is productive with green color sputum production. She has shortness of breath with mild exertion. Denies any chest pain. There is no associated nausea or vomiting. No diarrhea. REVIEW OF THE SYSTEMS: Mainly in the history of present illness. PAST MEDICAL HISTORY: 1. COPD. 2. Chronic hypoxic respiratory failure. 3. Chronic cough. 4. Anxiety, depression. 5. Bipolar disorder. PAST SURGICAL HISTORY: and ankle surgery. ALLERGIES: No known drug allergies. MEDICATIONS: Edvivo was reviewed. PERSONAL AND SOCIAL HISTORY: The patient is still smoking 2 packs per day. She is also drinking on regular basis. FAMILY HISTORY: Significant for parent has cancer. Sibling has cardiovascular disease. PHYSICAL EXAMINATION: GENERAL: The patient is now lying comfortably in bed. She is not in acute distress. VITAL SIGNS: The blood pressure is 172/94, pulse is 99, respiratory rate is 16, temperature is 98.2, and SpO2 95% on 3 liters nasal cannula. HEENT: Conjunctivae are pink. Sclerae are not icteric. NECK: Neck is supple. No JVD. CHEST: There are bibasilar crackles and wheezing on forceful expiration. HEART: Rhythm regular. Normal sound. No murmur. ABDOMEN: Abdomen is soft. Bowel sounds present. No hepatosplenomegaly. RECTAL: Deferred. EXTREMITIES: No cyanosis. No clubbing. No pedal edema. SKIN: The skin is warm. Normal turgor. CENTRAL NERVOUS SYSTEM: The patient is awake and alert. There is no obvious cranial nerve abnormality. The gait was not tested. CONSULT REPORT [id number] ALANNA NICE CHEST RADIOGRAPH: There are bibasilar infiltrates. OTHER LABORATORY DATA: CBC; WBC 11.9, hemoglobin 14.1, hematocrit 38.8, and platelet count is 307. Chemistry; sodium 126, potassium 3.3, BUN is 6, creatinine 0.6. ABG; the pH is 7.475, pCO2 is 42, pO2 is 83, and bicarb is 29.3. IMPRESSION: 1. Acute exacerbation of COPD. 2. Bilateral pneumonia, consistent with community-acquired pneumonia. 3. Fncvn-zy-wnqytqo hypoxic respiratory failure. 4. Tobacco dependence syndrome. 5. Leukocytosis. 6. Hyponatremia. 7. Hypokalemia. 8. Alcoholism. RECOMMENDATION: 1. Start her on Levaquin IV and Rocephin IV. Adjust the dose of methylprednisolone. Albuterol/ipratropium nebulizer, Brovana and budesonide nebulizer. 2. Mucinex. 3. Check alpha-1 level. 4. Followup labs and chest radiograph. Supplemental oxygen as required. 5. DTs precaution. Dr. Marc, thank you for involving me in the care of Ms. Nice. TRANSINT:[id number] Voice Confirmation ID: [id number] DOCUMENT ID: [id number] SARY GALO MD at 1806 CC: TORRIE MARC [id number] DICTATION DATE: 08/03/17 1510 PRINCIPAL ENGINEER: 08/03/17 1604 DIS IN 08/10/17 [place] [id number] [place] [id number]
[~2017-08-03 02:21] MED LIST changes: +EFFEXOR75 MG PO; +MUCINEX600 MG PO; +NICODERM C1 PATCH .3 TRANSDERM; +SYMBICORT 16010.2 GM INH; +TESSALON PERLE100 MG PO
[2017-08-03 03:15] LABS: BASOPHILS 0.3 % (0-2); EOSINOPHILS 0.3 % (0-7); HEMATOCRIT 38.8 % (36.0-48.0); HEMOGLOBIN 14.1 g/dL (12-16); IMMATURE GRANULOCYTES 0.3 % (0-5); MCH 33.3 pg (26.0-34.0); MCHC 36.3 g/dL (31.0-37.0); MCV 91.5 fL (80.0-100.0); MEAN PLATELET VOLUME 9.3 fL (7.4-10.4); MONOCYTES 16.3 % (2-11); NEUTROPHILS 70.8 % (40-80); PLATELET COUNT 307 10x3/uL (130-400); RBC 4.24 10x6/uL (4.00-5.40); RDW 12.4 % (11.5-14.5); WBC 11.9 10x3/uL (4.8-10.8)
[2017-08-03 03:23] LABS: ALBUMIN 3.3 g/dL (3.4-5.0); ALKALINE PHOSPHATASE 79 U/L (46-116); ALT (SGPT) 41 U/L (10-68); BILIRUBIN - TOTAL 0.61 mg/dL (0.2-1.3); CALC OSMOLALITY 251 mosm/kg (275-300); CALCIUM 8.9 mg/dL (8.5-10.1); CARBON DIOXIDE 29.6 mmol/L (21.0-32.0); CHLORIDE - SERUM 87 mmol/L (98-107); CREATININE - SERUM 0.6 mg/dL (0.6-1.3); GLUCOSE 120 mg/dL (74-106); POTASSIUM - SERUM 3.3 mmol/L (3.5-5.1); PROTEIN - SERUM 8.5 g/dL (6.4-8.2); SODIUM 126 mmol/L (136-145); UREA NITROGEN 6 mg/dL (7-18); eGFR NON AFRICAN AMERICAN > 90 mL/min (90-120)
[2017-08-03 07:48] LABS: APPEARANCE CLEAR (CLEAR); BILIRUBIN NEGATIVE (NEGATIVE); COLOR YELLOW (YELLOW); GLUCOSE NEGATIVE (NEGATIVE); KETONE LARGE mg/dL (NEGATIVE); NITRITE NEGATIVE (NEGATIVE); PROTEIN NEGATIVE (NEGATIVE); UROBILINOGEN NORMAL (NORMAL)
[2017-08-03 07:49] LABS: BACTERIA FEW /hpf (NONE SEEN); EPITHELIAL CELLS RARE /hpf (0-5); MUCUS <1+ /lpf (NONE SEEN); RED CELLS - URINE 0-5 /hpf (0-5); WHITE CELLS - URINE 0-5 /hpf (0-5)
[2017-08-03 07:50] LABS: AMORPHOUS SEDIMENT <1+ /lpf (NONE SEEN)
[2017-08-03 09:20] VITALS: BP 191/97
[2017-08-03 13:15] VITALS: BP 172/94
[2017-08-03 15:50] VITALS: Ht 167.6 cm; Wt 66.8 kg
[2017-08-03 17:01] VITALS: BP 122/77; BP 159/90
[2017-08-03 22:17] VITALS: BP 158/94
[2017-08-04 03:56] VITALS: BP 124/84
[2017-08-04 05:39] LABS: BASOPHILS 0 % (0-2); EOSINOPHILS 0 % (0-7); HEMATOCRIT 38.6 % (36.0-48.0); HEMOGLOBIN 13.7 g/dL (12-16); IMMATURE GRANULOCYTES 0.3 % (0-5); LYMPHOCYTES 7.6 % (15-50); MCHC 35.5 g/dL (31.0-37.0); MEAN PLATELET VOLUME 9.5 fL (7.4-10.4); NEUTROPHILS 81.1 % (40-80); PLATELET COUNT 322 10x3/uL (130-400); RBC 4.15 10x6/uL (4.00-5.40); RDW 12.7 % (11.5-14.5); WBC 9.4 10x3/uL (4.8-10.8)
[2017-08-04 06:04] LABS: CALC OSMOLALITY 271 mosm/kg (275-300); CALCIUM 8.9 mg/dL (8.5-10.1); CARBON DIOXIDE 30.6 mmol/L (21.0-32.0); CHLORIDE - SERUM 98 mmol/L (98-107); CREATININE - SERUM 0.5 mg/dL (0.6-1.3); GLUCOSE 164 mg/dL (74-106); POTASSIUM - SERUM 3.2 mmol/L (3.5-5.1); SODIUM 135 mmol/L (136-145); UREA NITROGEN 7 mg/dL (7-18); eGFR NON AFRICAN AMERICAN > 90 mL/min (90-120)
[2017-08-04 08:06] VITALS: BP 139/78
[2017-08-04 12:44] VITALS: BP 166/99
[2017-08-04 16:25] VITALS: BP 176/96
[2017-08-04 21:38] VITALS: BP 169/98
[2017-08-05 03:50] VITALS: BP 174/84
[2017-08-05 05:40] LABS: BASOPHILS 0.1 % (0-2); EOSINOPHILS 0 % (0-7); HEMATOCRIT 38.2 % (36.0-48.0); HEMOGLOBIN 13.4 g/dL (12-16); IMMATURE GRANULOCYTES 0.5 % (0-5); LYMPHOCYTES 6.5 % (15-50); MCH 32.8 pg (26.0-34.0); MCHC 35.1 g/dL (31.0-37.0); MCV 93.4 fL (80.0-100.0); MEAN PLATELET VOLUME 9.2 fL (7.4-10.4); NEUTROPHILS 83.9 % (40-80); PLATELET COUNT 349 10x3/uL (130-400); RBC 4.09 10x6/uL (4.00-5.40); RDW 12.5 % (11.5-14.5)
[2017-08-05 05:57] LABS: ALBUMIN 2.8 g/dL (3.4-5.0); ALKALINE PHOSPHATASE 66 U/L (46-116); ALT (SGPT) 41 U/L (10-68); CALC OSMOLALITY 274 mosm/kg (275-300); CALCIUM 8.3 mg/dL (8.5-10.1); CARBON DIOXIDE 32.1 mmol/L (21.0-32.0); CHLORIDE - SERUM 99 mmol/L (98-107); CREATININE - SERUM 0.6 mg/dL (0.6-1.3); GLUCOSE 151 mg/dL (74-106); PROTEIN - SERUM 7.2 g/dL (6.4-8.2); SODIUM 137 mmol/L (136-145); UREA NITROGEN 7 mg/dL (7-18); eGFR NON AFRICAN AMERICAN > 90 mL/min (90-120)
[2017-08-05 08:14] VITALS: BP 161/91
[2017-08-05 12:27] VITALS: BP 163/89
[2017-08-05 15:59] VITALS: BP 148/76
[2017-08-05 21:15] VITALS: BP 165/82
[2017-08-06] VITALS (9 sets, daily range): BP systolic 135–192; BP diastolic 68–102
[2017-08-06 04:22] LABS: BASOPHILS 0.1 % (0-2); EOSINOPHILS 0 % (0-7); HEMATOCRIT 37.6 % (36.0-48.0); HEMOGLOBIN 12.9 g/dL (12-16); IMMATURE GRANULOCYTES 0.8 % (0-5); LYMPHOCYTES 6.3 % (15-50); MCH 32.3 pg (26.0-34.0); MCHC 34.3 g/dL (31.0-37.0); MCV 94.2 fL (80.0-100.0); MEAN PLATELET VOLUME 9.2 fL (7.4-10.4); MONOCYTES 9.1 % (2-11); NEUTROPHILS 83.7 % (40-80); PLATELET COUNT 336 10x3/uL (130-400); RBC 3.99 10x6/uL (4.00-5.40); RDW 12.7 % (11.5-14.5); WBC 8.5 10x3/uL (4.8-10.8)
[2017-08-06 04:40] LABS: ALBUMIN 2.7 g/dL (3.4-5.0); ALKALINE PHOSPHATASE 56 U/L (46-116); ALT (SGPT) 53 U/L (10-68); BILIRUBIN - TOTAL 0.15 mg/dL (0.2-1.3); CALC OSMOLALITY 272 mosm/kg (275-300); CARBON DIOXIDE 31.6 mmol/L (21.0-32.0); CHLORIDE - SERUM 98 mmol/L (98-107); CREATININE - SERUM 0.5 mg/dL (0.6-1.3); GLUCOSE 156 mg/dL (74-106); POTASSIUM - SERUM 3.6 mmol/L (3.5-5.1); PROTEIN - SERUM 6.8 g/dL (6.4-8.2); SODIUM 136 mmol/L (136-145); UREA NITROGEN 7 mg/dL (7-18); eGFR NON AFRICAN AMERICAN > 90 mL/min (90-120)
[2017-08-07 03:52] VITALS: BP 163/70
[2017-08-07 05:01] LABS: BASOPHILS 0.1 % (0-2); EOSINOPHILS 0 % (0-7); HEMATOCRIT 40.6 % (36.0-48.0); HEMOGLOBIN 13.8 g/dL (12-16); IMMATURE GRANULOCYTES 1.1 % (0-5); LYMPHOCYTES 9.1 % (15-50); MCH 32.1 pg (26.0-34.0); MCV 94.4 fL (80.0-100.0); MEAN PLATELET VOLUME 9.3 fL (7.4-10.4); MONOCYTES 13.1 % (2-11); NEUTROPHILS 76.6 % (40-80); PLATELET COUNT 355 10x3/uL (130-400); RDW 12.9 % (11.5-14.5); WBC 9.9 10x3/uL (4.8-10.8)
[2017-08-07 06:15] LABS: ALBUMIN 2.8 g/dL (3.4-5.0); ALKALINE PHOSPHATASE 59 U/L (46-116); BILIRUBIN - TOTAL 0.14 mg/dL (0.2-1.3); CALCIUM 8.4 mg/dL (8.5-10.1); CARBON DIOXIDE 31.9 mmol/L (21.0-32.0); CHLORIDE - SERUM 99 mmol/L (98-107); GLUCOSE 146 mg/dL (74-106); POTASSIUM - SERUM 3.8 mmol/L (3.5-5.1); PROTEIN - SERUM 7.1 g/dL (6.4-8.2); SODIUM 138 mmol/L (136-145)
[2017-08-07 06:21] LABS: ALT (SGPT) 75 U/L (10-68); CALC OSMOLALITY 277 mosm/kg (275-300); CREATININE - SERUM 0.8 mg/dL (0.6-1.3); UREA NITROGEN 11 mg/dL (7-18); eGFR NON AFRICAN AMERICAN 77 mL/min (90-120)
[2017-08-07 08:10] VITALS: BP 174/94
[2017-08-07 13:06] VITALS: BP 147/73
[2017-08-07 16:04] VITALS: BP 170/87
[2017-08-07 19:58] VITALS: BP 156/94
[2017-08-08 00:04] VITALS: BP 156/92
[2017-08-08 04:00] VITALS: BP 149/89
[2017-08-08 05:00] LABS: BASOPHILS 0.1 % (0-2); EOSINOPHILS 0 % (0-7); HEMATOCRIT 37.3 % (36.0-48.0); HEMOGLOBIN 13.1 g/dL (12-16); LYMPHOCYTES 7.9 % (15-50); MCH 33.2 pg (26.0-34.0); MCHC 35.1 g/dL (31.0-37.0); MCV 94.4 fL (80.0-100.0); MEAN PLATELET VOLUME 9.2 fL (7.4-10.4); MONOCYTES 10.9 % (2-11); NEUTROPHILS 80.1 % (40-80); PLATELET COUNT 351 10x3/uL (130-400); RBC 3.95 10x6/uL (4.00-5.40); RDW 12.9 % (11.5-14.5); WBC 10.2 10x3/uL (4.8-10.8)
[2017-08-08 05:27] LABS: ALBUMIN 2.6 g/dL (3.4-5.0); ALKALINE PHOSPHATASE 48 U/L (46-116); ALT (SGPT) 92 U/L (10-68); BILIRUBIN - TOTAL 0.19 mg/dL (0.2-1.3); CALC OSMOLALITY 277 mosm/kg (275-300); CARBON DIOXIDE 31.1 mmol/L (21.0-32.0); CHLORIDE - SERUM 101 mmol/L (98-107); CREATININE - SERUM 0.6 mg/dL (0.6-1.3); GLUCOSE 132 mg/dL (74-106); POTASSIUM - SERUM 3.5 mmol/L (3.5-5.1); PROTEIN - SERUM 6.3 g/dL (6.4-8.2); SODIUM 138 mmol/L (136-145); UREA NITROGEN 12 mg/dL (7-18); eGFR NON AFRICAN AMERICAN > 90 mL/min (90-120)
[2017-08-08 08:20] VITALS: BP 188/102
[2017-08-08 12:48] VITALS: BP 146/87
[2017-08-08 16:55] VITALS: BP 142/74
[2017-08-08 20:00] VITALS: BP 150/86
[2017-08-09 04:00] VITALS: BP 176/100
[2017-08-09 04:56] LABS: BASOPHILS 0.1 % (0-2); EOSINOPHILS 0 % (0-7); HEMATOCRIT 38.4 % (36.0-48.0); IMMATURE GRANULOCYTES 0.9 % (0-5); LYMPHOCYTES 9.4 % (15-50); MCH 32.3 pg (26.0-34.0); MCHC 33.9 g/dL (31.0-37.0); MCV 95.3 fL (80.0-100.0); MEAN PLATELET VOLUME 9.2 fL (7.4-10.4); MONOCYTES 12.6 % (2-11); PLATELET COUNT 328 10x3/uL (130-400); RBC 4.03 10x6/uL (4.00-5.40); RDW 13.2 % (11.5-14.5); WBC 11.7 10x3/uL (4.8-10.8)
[2017-08-09 05:05] LABS: ALBUMIN 2.5 g/dL (3.4-5.0); ALKALINE PHOSPHATASE 49 U/L (46-116); ALT (SGPT) 93 U/L (10-68); BILIRUBIN - TOTAL 0.23 mg/dL (0.2-1.3); CALC OSMOLALITY 273 mosm/kg (275-300); CALCIUM 7.9 mg/dL (8.5-10.1); CARBON DIOXIDE 30.6 mmol/L (21.0-32.0); CHLORIDE - SERUM 100 mmol/L (98-107); CREATININE - SERUM 0.5 mg/dL (0.6-1.3); GLUCOSE 117 mg/dL (74-106); POTASSIUM - SERUM 3.8 mmol/L (3.5-5.1); PROTEIN - SERUM 6.1 g/dL (6.4-8.2); SODIUM 137 mmol/L (136-145); UREA NITROGEN 9 mg/dL (7-18); eGFR NON AFRICAN AMERICAN > 90 mL/min (90-120)
[2017-08-09 08:06] VITALS: BP 130/74
[2017-08-09 13:15] VITALS: BP 133/75
[2017-08-09 16:13] VITALS: BP 145/73
[2017-08-09 20:00] VITALS: BP 117/68
[2017-08-10 00:33] VITALS: BP 151/84
[2017-08-10 04:00] VITALS: BP 128/77
[2017-08-10 05:01] LABS: BASOPHILS 0.1 % (0-2); EOSINOPHILS 1.1 % (0-7); HEMATOCRIT 37.2 % (36.0-48.0); HEMOGLOBIN 12.5 g/dL (12-16); LYMPHOCYTES 24.3 % (15-50); MCH 32.1 pg (26.0-34.0); MCHC 33.6 g/dL (31.0-37.0); MCV 95.4 fL (80.0-100.0); MEAN PLATELET VOLUME 9.3 fL (7.4-10.4); MONOCYTES 15.6 % (2-11); NEUTROPHILS 57.9 % (40-80); PLATELET COUNT 334 10x3/uL (130-400); RDW 13.4 % (11.5-14.5); WBC 10.1 10x3/uL (4.8-10.8)
[2017-08-10 05:17] LABS: ALBUMIN 2.4 g/dL (3.4-5.0); ALKALINE PHOSPHATASE 45 U/L (46-116); ALT (SGPT) 112 U/L (10-68); CALC OSMOLALITY 278 mosm/kg (275-300); CALCIUM 7.7 mg/dL (8.5-10.1); CARBON DIOXIDE 33.2 mmol/L (21.0-32.0); CHLORIDE - SERUM 105 mmol/L (98-107); CREATININE - SERUM 0.6 mg/dL (0.6-1.3); GLUCOSE 83 mg/dL (74-106); POTASSIUM - SERUM 3.6 mmol/L (3.5-5.1); PROTEIN - SERUM 5.5 g/dL (6.4-8.2); SODIUM 141 mmol/L (136-145); UREA NITROGEN 11 mg/dL (7-18); eGFR NON AFRICAN AMERICAN > 90 mL/min (90-120)
[2017-08-10 08:42] VITALS: BP 122/75
[2017-08-10] MEDS ORDERED: NORVASC5 MG PO (12:11)
[2017-08-10] MEDS ORDERED: KLONOPIN1 MG PO (12:12)
[2017-08-10] MEDS ORDERED: PREDNISONE20 MG PO (12:13)
[2017-08-10 13:04] VITALS: BP 133/81
== END 2017-08-10 15:24 | disposition home or self-care (01) | DRG 177 ==
LOC: D.ER 02:21 → D.EDHOLD 05:36 → D.MS 05:36
PROVIDERS: Family Medicine
DX: J69.0 Pneumonitis due to inhalation of food and vomit (principal); J96.21 Acute and chronic respiratory failure with hypoxia; J44.0 Chronic obstructive pulmonary disease with (acute) lower respiratory infection; E87.1 Hypo-osmolality and hyponatremia; J44.1 Chronic obstructive pulmonary disease with (acute) exacerbation; F10.231 Alcohol dependence with withdrawal delirium; F17.203 Nicotine dependence unspecified, with withdrawal; E87.6 Hypokalemia

== ENCOUNTER → 2018-03-15 13:03 | Outpatient (CLI) | payer MEDICAID ==
[2017-08-03 15:50] VITALS: BMI 23.7
[~2018-03-15 13:03] MED LIST changes: +KLONOPIN1 MG PO; +NORVASC5 MG PO; +PREDNISONE20 MG PO
== END | disposition home or self-care (01) ==
LOC: D.RT 03-02 11:00
DX: J44.1 Chronic obstructive pulmonary disease with (acute) exacerbation (principal)

== ENCOUNTER 2018-07-29 21:14 | Inpatient (IN) | payer MEDICAID ==
[~2018-07-29] VITALS: Ht 167.6 cm; Wt 82.6 kg
[2018-07-29 21:45] LABS: HEMATOCRIT 43.1 % (36.0-48.0); HEMOGLOBIN 15.4 g/dL (12-16); MCH 32.4 pg (26.0-34.0); MCHC 35.7 g/dL (31.0-37.0); MCV 90.7 fL (80.0-100.0); MEAN PLATELET VOLUME 8.9 fL (7.4-10.4); PLATELET COUNT 244 10x3/uL (130-400); RBC 4.75 10x6/uL (4.00-5.40); RDW 13.5 % (11.5-14.5); WBC 24.5 10x3/uL (4.8-10.8)
[2018-07-29 21:58] LABS: ALBUMIN 3.8 g/dL (3.4-5.0); ALKALINE PHOSPHATASE 61 U/L (46-116); ALT (SGPT) 52 U/L (10-68); BILIRUBIN - TOTAL 1.26 mg/dL (0.2-1.3); CALC OSMOLALITY 259 mosm/kg (275-300); CALCIUM 8.9 mg/dL (8.5-10.1); CARBON DIOXIDE 26.6 mmol/L (21.0-32.0); CHLORIDE - SERUM 92 mmol/L (98-107); CREATININE - SERUM 0.8 mg/dL (0.6-1.3); GLUCOSE 133 mg/dL (74-106); POTASSIUM - SERUM 3.4 mmol/L (3.5-5.1); PROTEIN - SERUM 8.5 g/dL (6.4-8.2); SODIUM 129 mmol/L (136-145); UREA NITROGEN 11 mg/dL (7-18); eGFR NON AFRICAN AMERICAN 77 mL/min (90-120)
[2018-07-29 22:04] LABS: LYMPHOCYTES 7 % (15-50); MONOCYTES 4 % (2-11); NEUTROPHILS 84 % (40-80); PRO BNP 342 pg/mL (0-125)
[2018-07-29 22:05] LABS: PLATELET ESTIMATE NORMAL; SMUDGE CELLS 2+
[2018-07-29 22:26] LABS: APPEARANCE HAZY (CLEAR); BILIRUBIN NEGATIVE (NEGATIVE); COLOR AMBER (YELLOW); GLUCOSE NEGATIVE (NEGATIVE); KETONE SMALL mg/dL (NEGATIVE); NITRITE POSITIVE (NEGATIVE); PROTEIN 1+ mg/dL (NEGATIVE); SPECIFIC GRAVITY 1.025 (1.005-1.020); UROBILINOGEN NORMAL (NORMAL)
[2018-07-29 22:28] LABS: BACTERIA MANY /hpf (NONE SEEN); RED CELLS - URINE 0-5 /hpf (0-5)
--- NOTE | 2018-07-29 23:13 | NUR ---
RECEIVED FROM ER, A&O, IV-RAC, 02-4L, BED IS LOW, SRX2, CALL LIGHT IN REACH, WILL CONTINUE PLAN OF CARE
[2018-07-29] MEDS ORDERED: BUPROPION HCL100 MG PO (23:20)
[2018-07-29] MEDS ORDERED: KLONOPIN1 MG PO (23:22)
[2018-07-29 23:30] VITALS: BP 142/86
[2018-07-30 01:00] VITALS: BP 142/86; BMI 25.8
[2018-07-30 04:20] VITALS: BP 128/78
--- NOTE | 2018-07-30 07:23 | NUR ---
REPORT RECEIVED. WILL CONTINUE WITH POC. PT CURRENTLY LYING SEMI FOWLERS. CALL LIGHT W/I REACH. PT IS AAO AND UP AD POLLY. RR EVEN AND UNLABORED ON 2L 02. PT CURRENTLY UNDERGONG RESP TRX. NO S/S OF DISTRESS NOTED. NS INFUSING @KVO VIA R.AC PIV. PT DENIES ANY NEEDS. WILL CTM.
[2018-07-30 08:31] VITALS: BP 146/85
[2018-07-30 11:30] VITALS: BP 118/69
[2018-07-30 12:14] VITALS: BMI 25.8
[2018-07-30 13:30] LABS: BASOPHILS 0 % (0-2); EOSINOPHILS 0 % (0-7); HEMATOCRIT 41.3 % (36.0-48.0); HEMOGLOBIN 14.9 g/dL (12-16); IMMATURE GRANULOCYTES 0.5 % (0-5); LYMPHOCYTES 2.6 % (15-50); MCH 32.8 pg (26.0-34.0); MCHC 36.1 g/dL (31.0-37.0); MEAN PLATELET VOLUME 9.7 fL (7.4-10.4); MONOCYTES 4.7 % (2-11); NEUTROPHILS 92.2 % (40-80); PLATELET COUNT 249 10x3/uL (130-400); RBC 4.54 10x6/uL (4.00-5.40); RDW 13.6 % (11.5-14.5); WBC 28.1 10x3/uL (4.8-10.8)
[2018-07-30 13:35] LABS: APTT 28.1 SECONDS (22.8-39.4); INR 1.13 (0.85-1.17)
[2018-07-30 13:36] LABS: D-DIMER-QUANTITATIVE 0.88 ug/mLFEU (0.20-0.54)
[2018-07-30 13:42] LABS: ALBUMIN 3.3 g/dL (3.4-5.0); ANION GAP 13.2 mmol/L (8-16); BILIRUBIN - TOTAL 0.47 mg/dL (0.2-1.3); CALCIUM 9.2 mg/dL (8.5-10.1); CARBON DIOXIDE 28.1 mmol/L (21.0-32.0); CREATININE - SERUM 0.9 mg/dL (0.6-1.3); MAGNESIUM - SERUM 1.9 mg/dL (1.8-2.4); POTASSIUM - SERUM 3.3 mmol/L (3.5-5.1); PROTEIN - SERUM 8.3 g/dL (6.4-8.2)
[2018-07-30 15:24] VITALS: Ht 167.6 cm; Wt 82.6 kg
[2018-07-30 16:34] VITALS: BP 129/76
--- NOTE | 2018-07-30 16:59 | NUR ---
I have reviewed this patient and I concur with the Shift Assessment completed by the Licensed Practical Nurse today this shift.
--- NOTE | 2018-07-30 19:30 | NUR ---
RECEIVED REPORT, WILL ASSUME CARE OF PT, ON [id number], BED IS LOW, SRX2, CALL LIGHT IN REACH, WILL CONTINUE PLAN OF CARE
[2018-07-30 20:14] VITALS: BP 133/82
[2018-07-30 22:00] LABS: UDS - AMPHET NEGATIVE QUAL (NEGATIVE); UDS - BARB NEGATIVE QUAL (NEGATIVE); UDS - BENZO NEGATIVE QUAL (NEGATIVE); UDS - COCAINE NEGATIVE QUAL (NEGATIVE); UDS - OPIATE POSITIVE QUAL (NEGATIVE); UDS - PCP NEGATIVE QUAL (NEGATIVE); UDS - THC NEGATIVE QUAL (NEGATIVE)
[2018-07-31 03:49] VITALS: BP 108/75
[2018-07-31 03:52] LABS: HEMATOCRIT 40.5 % (36.0-48.0); HEMOGLOBIN 14.4 g/dL (12-16); MCH 32.6 pg (26.0-34.0); MCHC 35.6 g/dL (31.0-37.0); MCV 91.6 fL (80.0-100.0); MEAN PLATELET VOLUME 9.8 fL (7.4-10.4); PLATELET COUNT 246 10x3/uL (130-400); RBC 4.42 10x6/uL (4.00-5.40); RDW 13.6 % (11.5-14.5); WBC 25.4 10x3/uL (4.8-10.8)
[2018-07-31 03:53] LABS: CALC OSMOLALITY 270 mosm/kg (275-300); CALCIUM 9.1 mg/dL (8.5-10.1); CHLORIDE - SERUM 96 mmol/L (98-107); CREATININE - SERUM 0.8 mg/dL (0.6-1.3); GLUCOSE 174 mg/dL (74-106); POTASSIUM - SERUM 3.5 mmol/L (3.5-5.1); SODIUM 132 mmol/L (136-145); UREA NITROGEN 19 mg/dL (7-18); eGFR NON AFRICAN AMERICAN 77 mL/min (90-120)
--- NOTE | 2018-07-31 04:00 | NUR ---
I have reviewed this patient and I concur with the Shift Assessment completed by the Licensed Practical Nurse today this shift.
[2018-07-31 04:18] LABS: LYMPHOCYTES 5 % (15-50); MONOCYTES 5 % (2-11); NEUTROPHILS 84 % (40-80); PLATELET ESTIMATE NORMAL
--- NOTE | 2018-07-31 07:12 | NUR ---
REPORT RECEIVED. WILL CONTINUE WITH POC. PT CURRENTLY RESTING ON RIGHT SIDE. CALL LIGHT W/I REACH. RR EVEN AND UNLABORED ON 4L 02. R.AC PIV IS SALINE LOCKED. NO S/S OF DISTRESS NOTED. WILL CTM.
--- NOTE | 2018-07-31 09:11 | NUR ---
I have reviewed this patient and I concur with the Shift Assessment completed by the Licensed Practical Nurse today this shift.
[2018-07-31 10:00] VITALS: BP 119/52
--- NOTE | 2018-07-31 11:55 | NUR ---
PREVIOUS PIV INFILTRATED. STARTED NEW PIV TO THE LEFT HAND. 22GA X1 ATTEMPT. PT TOLERATED WELL. FLUSHED WITH 10CC NS TO CONFIRM PATENCY. PT DENIES ANY NEEDS. ABX CURRENTLY INFUSING. WILL CTM.
[2018-07-31 16:43] VITALS: BP 113/69
[2018-07-31 17:14] VITALS: BP 121/70
--- NOTE | 2018-07-31 18:19 | NUR ---
PT CURRENTLY ON RIGHT SIDE RESTING. CALL LIGHT W/I REACH. RR EVEN AND UNLABORED ON 4L 02. PIV SALINE LOCKED. NO S/S OF DISTRESS NOTED. PT DENIES ANY NEEDS. WILL PASS REPORT AND CONTINUE WITH POC.
--- NOTE | 2018-07-31 19:25 | NUR ---
RECEIVED REPORT, WILL ASSUME CARE OF PT, PT IS SLEEPING, NO DISTRESS NOTICED AT THIS TIME, BED IS LOW, SRX2, CALL LIGHT IN REACH, WILL CONTINUE PLAN OF CARE
[2018-07-31 19:55] VITALS: BP 140/72
[2018-08-01 03:43] VITALS: BP 146/77
--- NOTE | 2018-08-01 04:07 | NUR ---
I have reviewed this patient and I concur with the Shift Assessment completed by the Licensed Practical Nurse today this shift.
[2018-08-01 05:51] LABS: BASOPHILS 0 % (0-2); EOSINOPHILS 0 % (0-7); HEMATOCRIT 39.9 % (36.0-48.0); HEMOGLOBIN 13.9 g/dL (12-16); IMMATURE GRANULOCYTES 0.3 % (0-5); LYMPHOCYTES 4.7 % (15-50); MCH 32.3 pg (26.0-34.0); MCHC 34.8 g/dL (31.0-37.0); MCV 92.6 fL (80.0-100.0); MEAN PLATELET VOLUME 9.8 fL (7.4-10.4); MONOCYTES 6.1 % (2-11); NEUTROPHILS 88.9 % (40-80); RBC 4.31 10x6/uL (4.00-5.40)
[2018-08-01 05:52] LABS: CALC OSMOLALITY 278 mosm/kg (275-300); CARBON DIOXIDE 30.9 mmol/L (21.0-32.0); CHLORIDE - SERUM 101 mmol/L (98-107); CREATININE - SERUM 0.7 mg/dL (0.6-1.3); GLUCOSE 178 mg/dL (74-106); SODIUM 137 mmol/L (136-145); UREA NITROGEN 16 mg/dL (7-18); eGFR NON AFRICAN AMERICAN 90 mL/min (90-120)
[2018-08-01 05:54] LABS: PLATELET COUNT 313 10x3/uL (130-400); WBC 16.7 10x3/uL (4.8-10.8)
[2018-08-01 06:00] LABS: POTASSIUM - SERUM 4.1 mmol/L (3.5-5.1)
--- NOTE | 2018-08-01 07:11 | NUR ---
REPORT RECEIVED. WILL CONTINUE WITH POC. PT CURRENTLY LYING SEMI FOWLERS. CALL LIGHT W/I REACH. PT IS AAO AND UP AD POLLY. RR EVEN AND UNLABORED ON 4L 02. R.FOR PIV IS SALINE LOCKED. PT IS STATING THAT SHE HAS CHEST TIGHTENESS. REVIEWED EKG AND PT IS SINUS TACH AT 104. WILL REVEIW MEDICATIONS AND CALL PHYSICIAN. WILL CTM.
--- NOTE | 2018-08-01 07:18 | NUR ---
PT STATES THAT SHE BELIEVES IT IS JUST GAS AND IT GETS BETTER WHEN SHE SITS UP. PT IS NOW SINUS RYTHYM @83. PT IS ASYMPTOMATIC. PT DENIES ANY FURTHER NEEDS. NO S/S OF DISTRESS NOTED. WILL CTM.
[2018-08-01 07:38] VITALS: BP 138/72
--- NOTE | 2018-08-01 10:07 | NUR ---
I have reviewed this patient and I concur with the Shift Assessment completed by the Licensed Practical Nurse today this shift.
--- NOTE | 2018-08-01 11:05 | NUR ---
RECEIVED ORDERS TO RESTART ATIVAN 1MG IV Q6HPRN. WILL PLACE ORDER. WILL CTM.
[2018-08-01 11:56] VITALS: BP 143/83
[2018-08-01 16:14] VITALS: BP 137/70
[2018-08-01 20:00] VITALS: BP 121/61
[2018-08-02] VITALS: BP 139/77
--- NOTE | 2018-08-02 03:25 | NUR ---
I have reviewed this patient and I concur with the Shift Assessment completed by the Licensed Practical Nurse today this shift.
[2018-08-02 04:00] VITALS: BP 132/70
--- NOTE | 2018-08-02 04:02 | NUR ---
RESTING WITH EYES CLOSED, RESPERATIONS EVEN, NO S/S DISTRESS NOTED.
[2018-08-02 04:41] LABS: BASOPHILS 0.1 % (0-2); EOSINOPHILS 0.1 % (0-7); HEMATOCRIT 38.1 % (36.0-48.0); HEMOGLOBIN 13.2 g/dL (12-16); IMMATURE GRANULOCYTES 0.3 % (0-5); LYMPHOCYTES 22.4 % (15-50); MCH 31.7 pg (26.0-34.0); MCHC 34.6 g/dL (31.0-37.0); MCV 91.4 fL (80.0-100.0); MEAN PLATELET VOLUME 9.3 fL (7.4-10.4); MONOCYTES 17.6 % (2-11); NEUTROPHILS 59.5 % (40-80); PLATELET COUNT 283 10x3/uL (130-400); RBC 4.17 10x6/uL (4.00-5.40); RDW 13.7 % (11.5-14.5)
[2018-08-02 04:53] LABS: WBC 9.6 10x3/uL (4.8-10.8)
[2018-08-02 04:56] LABS: CALCIUM 8.6 mg/dL (8.5-10.1); CARBON DIOXIDE 30.1 mmol/L (21.0-32.0); CHLORIDE - SERUM 101 mmol/L (98-107); CREATININE - SERUM 0.7 mg/dL (0.6-1.3); SODIUM 138 mmol/L (136-145); UREA NITROGEN 13 mg/dL (7-18); eGFR NON AFRICAN AMERICAN 90 mL/min (90-120)
[2018-08-02 05:16] LABS: CALC OSMOLALITY 275 mosm/kg (275-300); GLUCOSE 107 mg/dL (74-106)
--- NOTE | 2018-08-02 06:12 | NUR ---
POTASSIUM OF 3.0 TREATED PER E.P.
--- NOTE | 2018-08-02 07:35 | NUR ---
ASSESSMENT COMPLETED. TELEMERTY SHOWS SR. O2 AT 4 L/M PER NC ALERT AND ORIENTED. UP AB POLLY. DENIES ANY NEEDS. SR UP WITH CALL LIGHT IN REACH
[2018-08-02 07:47] VITALS: BP 141/75
--- NOTE | 2018-08-02 14:41 | NUR ---
I have reviewed this patient and I concur with the Shift Assessment completed by the Licensed Practical Nurse today this shift.
[2018-08-02 16:16] VITALS: BP 134/98
[2018-08-02 16:22] VITALS: BP 127/66
[2018-08-02 20:00] VITALS: BP 129/73
--- NOTE | 2018-08-02 21:26 | NUR ---
PT UP TO SHOWER, LINENS CHANGED.
--- NOTE | 2018-08-02 22:21 | NUR ---
IV RESITED TO INNER RIGHT FOREARM, 22 GUAGE, FIRST ATTMEPT. PT TOLERATED WELL.
[2018-08-03] VITALS: BP 136/88
--- NOTE | 2018-08-03 02:36 | NUR ---
I have reviewed this patient and I concur with the Shift Assessment completed by the Licensed Practical Nurse today this shift.
[2018-08-03 04:00] VITALS: BP 157/92
[2018-08-03 05:22] LABS: BASOPHILS 0.1 % (0-2); EOSINOPHILS 0.6 % (0-7); IMMATURE GRANULOCYTES 0.5 % (0-5); LYMPHOCYTES 34.7 % (15-50); MCH 32.3 pg (26.0-34.0); MCHC 35.1 g/dL (31.0-37.0); MCV 91.8 fL (80.0-100.0); MEAN PLATELET VOLUME 9.5 fL (7.4-10.4); MONOCYTES 17.5 % (2-11); NEUTROPHILS 46.6 % (40-80); PLATELET COUNT 302 10x3/uL (130-400); RBC 4.03 10x6/uL (4.00-5.40); RDW 13.9 % (11.5-14.5); WBC 8.7 10x3/uL (4.8-10.8)
[2018-08-03 05:52] LABS: CALC OSMOLALITY 275 mosm/kg (275-300); CALCIUM 8.4 mg/dL (8.5-10.1); CARBON DIOXIDE 28.5 mmol/L (21.0-32.0); CHLORIDE - SERUM 103 mmol/L (98-107); CREATININE - SERUM 0.6 mg/dL (0.6-1.3); GLUCOSE 89 mg/dL (74-106); SODIUM 139 mmol/L (136-145); UREA NITROGEN 11 mg/dL (7-18); eGFR NON AFRICAN AMERICAN > 90 mL/min (90-120)
[2018-08-03 06:14] LABS: POTASSIUM - SERUM 2.9 mmol/L (3.5-5.1)
--- NOTE | 2018-08-03 07:25 | NUR ---
PT IN BED, RESTING COMFORTABLY WITH EYES CLOSED. RT FA IV SL. PT WEARING O2 AT 4L WITH EVEN AND REGULAR RESPIRATIONS. MONITOR SHOWING SR WITH RATE OF 78. CALL LIGHT IN REACH, NAD NOTED, WILL CONTINUE PLAN OF CARE.
[2018-08-03 07:56] VITALS: BP 124/69
--- NOTE | 2018-08-03 08:41 | NUR ---
AM MEDS GIVEN AT THIS TIME. PT IN BED, EATING BREAKFAST. REQUESTED HER ATIVAN. 1MG OF ATIVAN GIVEN. PT A/O X4, DENIES ANY NEEDS AT THIS TIME. CALL LIGHT IN REACH, NAD NOTED, WILL CONTINUE TO MONITOR.
--- NOTE | 2018-08-03 11:24 | NUR ---
CITY WELLNESS COORDINATOR AT BEDSIDE, GAVE JUANN ORDERED. PT DENIES ANY NEEDS AT THIS TIME. CALL LIGHT IN REACH, NAD NOTED, WILL CONTINUE TO MONITOR.
[2018-08-03 11:57] VITALS: BP 128/74
--- NOTE | 2018-08-03 13:31 | NUR ---
Nutrition follow-up: Diet: Low sodium PO intake 100% of most meals Labs reviewed Wt: 180# +BM RDN following.
--- NOTE | 2018-08-03 15:32 | NUR ---
RIGHT FA IV INFILTRATED. D/C IV WITH CATHETER TIP INTACT. NEW 22G IV STARTED TO RT WRIST X2 STICKS. ALSO GAVE 1MG OF ATIVAN.
[2018-08-03 16:33] VITALS: BP 130/68
--- NOTE | 2018-08-03 19:37 | NUR ---
ASSESSMENT COMPLETE. PT A&O. O2 AT 4 LITERS VIA NC. IV TO RIGHT WRIST SL. IV SITE CLEAN AND DRY. PT DENIES PAIN OR NEEDS AT THIS TIME, BED LOW, CL IN REACH.
[2018-08-03 20:00] VITALS: BP 139/71
--- NOTE | 2018-08-03 20:38 | NUR ---
ATIVAN 1 MG GIVEN AT PT REQUEST FOR AGITATION.
--- NOTE | 2018-08-03 21:00 | NUR ---
HS MEDS GIVEN WITH FRESH ICE WATER. NO OTHER NEEDS EXPRESSED AT THIS TIME.
[2018-08-04] VITALS: BP 140/66
--- NOTE | 2018-08-04 01:42 | NUR ---
RESTING WITH EYES CLOSED, RESPERATIONS EVEN, NO S/S DISTRESS NOTED.
--- NOTE | 2018-08-04 02:39 | NUR ---
I have reviewed this patient and I concur with the Shift Assessment completed by the Licensed Practical Nurse today this shift.
[2018-08-04 04:00] VITALS: BP 159/91
--- NOTE | 2018-08-04 05:30 | NUR ---
ATIVAN 1 MG GIVEN IV AT PT REQUEST FOR C/O ANXIETY.
[2018-08-04 05:39] LABS: BASOPHILS 0.1 % (0-2); EOSINOPHILS 0.7 % (0-7); HEMATOCRIT 37.8 % (36.0-48.0); LYMPHOCYTES 25.7 % (15-50); MCH 31.8 pg (26.0-34.0); MCHC 34.4 g/dL (31.0-37.0); MCV 92.4 fL (80.0-100.0); MEAN PLATELET VOLUME 9.2 fL (7.4-10.4); MONOCYTES 16.9 % (2-11); NEUTROPHILS 55.6 % (40-80); PLATELET COUNT 305 10x3/uL (130-400); RBC 4.09 10x6/uL (4.00-5.40)
[2018-08-04 05:41] LABS: CALC OSMOLALITY 276 mosm/kg (275-300); CALCIUM 8.6 mg/dL (8.5-10.1); CARBON DIOXIDE 32.3 mmol/L (21.0-32.0); CHLORIDE - SERUM 103 mmol/L (98-107); CREATININE - SERUM 0.7 mg/dL (0.6-1.3); GLUCOSE 94 mg/dL (74-106); POTASSIUM - SERUM 3.6 mmol/L (3.5-5.1); SODIUM 139 mmol/L (136-145); UREA NITROGEN 11 mg/dL (7-18); WBC 11.4 10x3/uL (4.8-10.8); eGFR NON AFRICAN AMERICAN 90 mL/min (90-120)
[2018-08-04 08:38] VITALS: BP 113/79
[2018-08-04 11:39] VITALS: BP 105/52
--- NOTE | 2018-08-04 13:26 | NUR ---
I have reviewed this patient and I concur with the Shift Assessment completed by the Licensed Practical Nurse today this shift.
[2018-08-04] MEDS ORDERED: LEVAQUIN750 MG PO ×2 (15:11→16:37)
[2018-08-04 15:55] VITALS: BP 112/76
--- NOTE | 2018-08-04 16:58 | MORECARE ---
CASE MANAGEMENT DISCHARGE SUMMARY PATIENT: ALANNA RAPP UNIT: [id number] ADM DATE: 07/29/18 AGE: 62 : 57 SEX: F ROOM/BED: D.8238 AUTHOR: JC WANG PHYSICIAN: REFERRING PHYSICIAN: REYMUNDO CAMACHO MD DATE OF SERVICE: 08/04/18 Discharge Plan Patient Name: ALANNA RAPP Facility: [facility]:[place] : 1955 Planned Disposition: Home Anticipated Discharge Date: 08/04/18 Discharge Date: Expected LOS: 6 Initial Reviewer: [email or web address] Initial Review Date: 08/04/2018 Generated: 08/04/18 5:57 pm DCPIA - Discharge Planning Initial Assessment Updated by [email or web address]: Drew Kowalski on 08/04/18 4:56 pm * Is the patient Alert and Oriented? Yes * How many steps to enter\exit or inside your home? * PCP DR. MARC * Pharmacy [facility] [place] * Preadmission Environment Home with Family * ADLs Independent * Equipment Nebulizer Oxygen * Other Equipment OXYGEN AT NIGHT ONLY - [facility] IS PROVIDER * List name and contact numbers for known caregivers / representatives who currently or will assist patient after discharge: SHERRY CHANG, , * Verbal permission to speak to the caregivers and representatives has been obtained from the patient. N/A * Community resources currently utilized None * Please name any agencies selected above. NONE * Additional services required to return to the preadmission environment? No * Can the patient safely return to the preadmission environment? Yes * Has this patient been hospitalized within the prior 30 days at any hospital? No Patient Name: ALANNA RAPP Page [id number] at 1658 All edits/amendments must be made on the electronic document DICTATION DATE: 08/04/181656 FARM DEMONSTRATOR: BRITTNY 08/04/181656 RPT#: [id number] DC DATE: STATUS: ADM IN [facility] [address] [place] [address] END OF REPORT
--- NOTE | 2018-08-04 17:06 | MORECARE ---
CASE MANAGEMENT DISCHARGE SUMMARY PATIENT: ALANNA RAPP UNIT: [id number] ADM DATE: 07/29/18 AGE: 62 : 57 SEX: F ROOM/BED: D.6252 AUTHOR: KATHLEEN,DOC PHYSICIAN: REFERRING PHYSICIAN: REYMUNDO CAMACHO MD DATE OF SERVICE: 08/04/18 Discharge Plan Patient Name: ALANNA RAPP Facility: [facility]:[place] : 1955 Planned Disposition: Home Anticipated Discharge Date: 08/04/18 Discharge Date: Expected LOS: 6 Initial Reviewer: [email or web address] Initial Review Date: 08/04/2018 Generated: 08/04/18 6:05 pm Comments DCP- Discharge Planning Updated by [email or web address]: Drew Kowalski on 08/04/18 3:[address] Patient Name: ALANNA RAPP Admission Status: ER Accout number: [id number] Admission Date: 07-29-2018 : 1955 Admission Diagnosis:SHORTNESS OF BREATH Attending: REYMUNDO CAMACHO Current LOS: 6 Anticipated DC Date: 08-04-2018 Planned Disposition: Home Primary Insurance: [place] Discharge Planning Comments: CM MET WITH PT IN ROOM TO DISCUSS DISCHARGE PLANNING AND NEEDS. PT REPORTS LIVING AT HOME INDEPENDENTLY WITH HER SPOUSE. PT HAS NEBULIZER AND NIGHT TIME OXYGEN FROM [facility]. PT HAS NO OUTSIDE SERVICES ASSISTING IN THE HOME. CM DISCUSSED AVAILABILITY OF HOME HEALTH, REHAB SERVICES AND MEDICAL EQUIPMENT. PT DENIES DISCHARGE NEEDS, CM ASSISTED PT WITH CALLING HER SPOUSE LONG DISTANCE, PT REPORTS HER SON WILL PICK HER UP FOR DISCHARGE HOME.PT CONCERNED ABOUT GOING HOME WITHOUT [place] AND ATIVAN. PT REPORTS SHE HAS BEEN DRINKING BEER, 10-15 TWELVE OUNCE CANS PER DAY SINCE JUNE. CM OFFERED TO ASSIST WITH GETTING PT INTO RECOVERY TREATMENT, PT DECLINED AND STATES SHE CAN STOP WHEN SHE WANTS TO. CM OFFERED COMMUNITY SUPPORT GROUP MEETING INFORMATION, PT DECLINED AND STATES SHE DOES NOT NEED IT, REPORTING "I'M NOT A DRUNK". PT DENIES DISCHARGE NEEDS. CM NOTIFIED BASKET MACHINE OPERATOR NURSE AND BEDSIDE NURSE. Package Reinspector: Drew Kowalski DCPIA - Discharge Planning Initial Assessment Updated by [email or web address]: Drew Kowalski on 08/04/18 4:56 pm * Is the patient Alert and Oriented? Yes * How many steps to enter\\exit or inside your home? * PCP DR. MARC * Pharmacy [facility] IN [place] * Preadmission Environment Home with Family * ADLs Independent * Equipment Nebulizer Oxygen * Other Equipment OXYGEN AT NIGHT ONLY - [facility] IS PROVIDER * List name and contact numbers for known caregivers / representatives who currently or will assist patient after discharge: SHERRY CHANG, , * Verbal permission to speak to the caregivers and representatives has been obtained from the patient. N/A * Community resources currently utilized None * Please name any agencies selected above. NONE * Additional services required to return to the preadmission environment? No * Can the patient safely return to the preadmission environment? Yes * Has this patient been hospitalized within the prior 30 days at any hospital? No Last DP export: 08/04/18 3:58 p Patient Name: ALANNA RAPP Page [id number] at 1706 All edits/amendments must be made on the electronic document DICTATION DATE: 08/04/181704 RECREATION TECHNICIAN: BRITTNY 08/04/181704 RPT#: [id number] DC DATE: STATUS: ADM IN [facility] [address] [place] [address] END OF REPORT
--- NOTE | 2018-08-04 19:29 | NUR ---
PT UP WALKING AROUND. DENIES ANY NEEDS. REMOVED TELEMETRY AND RETURNED IT TO RECEPTION SPECIALIST. WAITING FOR PT RIDE. WILL REMOVE IV ONCE RIDE IS HERE. PT DENIES ANY QUESTIONS OR CONCERNS. WILL CPOC
--- NOTE | 2018-08-04 20:23 | NUR ---
IV REMOVED AND PT TAKEN DOWN IN WHEEL CHAIR
--- NOTE | 2018-08-05 11:28 | EC ---
PATIENT:ALANNA RAPP DATE OF SERVICE: 07/29/18 SEX: F MEDICAL RECORD: [id number] DATE OF : [birth year] LOCATION:D.M2 D.212 AGE OF PATIENT: 62 ADMISSION DATE: 07/29/18 REFERRING PHYSICIAN: INTERPRETING PHYSICIAN: SANTI GUZMAN MD ECHOCARDIOGRAM REPORT ECHO CHARGES 4 ECHO COMPLETE Date: 07/31/18 CLINICAL DIAGNOSIS: CHF ECHOCARDIOGRAPHIC MEASUREMENTS (adult normal given) AC root (d.<3.7cm) 3.3 cm LV Septum d (<1.2 cm> 0.9 cm Valve Excursion 1.9 cm LV Septum (systole) 1.6 cm Left Atria (s.<4.0cm> 4.1 cm LVPW d(<1.2cm) 1.3 cm RV (d.<2.3cm) 3.1 cm LVPW (sytole) 1.4 cm LV diastole(<5.6CM) 5.2 cm MV E-F(>70mm/sec) cm LV systole 3.8 cm LVOT Diameter 1.7 cm MV exc.(>10mm) cm Est.ejection fraction (50-75%) % DOPPLER: LVIT cm/sec A 110 cm/sec E 79 cm/sec LA cm/sec RVSP 37.5 mmHg LVOT 118 cm/sec AOP1/2T m/s Asc. Ao 142 cm/sec RVOT 57 cm/sec RA cm/sec PA 99 cm/sec AV Gradient Peak 8.1 mmHg AV Mean 4.6 mmHg AV Area 2.7 cm MV Gradient Peak 7.7 mmHg MV Mean 4.2 mmHg MV Area cm COMMENTS: Physician Internist: Dieter KIMBALL Wind Tunnel Mechanic: 1 Dr. Guzman TAPE# PACS Pericardial Effusion N DATE OF SERVICE: 07/31/2018 FINDINGS: 1. Left ventricular chamber size is within normal limits. Left ventricular systolic function is normal. Overall ejection fraction is estimated at 60%. 2. Left atrium, right atrium, and right ventricular chamber sizes are mildly dilated. Left atrium measures 4.1 cm. 3. Valvular structures have normal structure and motion. 4. Doppler interrogation reveals trace tricuspid regurgitation. No other valvular insufficiency or stenosis. ECHOCARDIOGRAM REPORT [id number] ALANNA RAPP 5. No evidence of pericardial effusion or left ventricular thrombus. TRANSINT:[id number] Voice Confirmation ID: [id number] DOCUMENT ID: [id number] SANTI GUZMAN MD at 1128 CC: [id number] DICTATION DATE: 08/01/18 1005 ELECTRICAL EQUIPMENT TECHNICIAN: 08/01/18 1203 DIS IN 08/04/18 [place] [id number] [place] [id number]
== END 2018-08-04 20:34 | disposition home or self-care (01) | DRG 871 ==
LOC: D.ER 21:14 → D.M2 22:15
PROVIDERS: Emergency Medicine; ADMIT Internal Medicine Nephrology; ATTEND Internal Medicine Nephrology
DX: A41.9 Sepsis, unspecified organism (principal); J96.21 Acute and chronic respiratory failure with hypoxia; J44.1 Chronic obstructive pulmonary disease with (acute) exacerbation; N39.0 Urinary tract infection, site not specified; E87.1 Hypo-osmolality and hyponatremia; F17.213 Nicotine dependence, cigarettes, with withdrawal; Z99.81 Dependence on supplemental oxygen; E87.6 Hypokalemia; F32.9 Major depressive disorder, single episode, unspecified; F41.9 Anxiety disorder, unspecified; F10.10 Alcohol abuse, uncomplicated

== ENCOUNTER 2019-05-08 15:43 | Emergency (ER) | payer MEDICAID ==
[~2019-05-08] VITALS: Ht 167.6 cm; Wt 72.7 kg
[~2019-05-08 15:43] MED LIST changes: +BUPROPION HCL100 MG PO
[2019-05-08 15:48] VITALS: Ht 167.6 cm; Wt 72.7 kg
[2019-05-08 16:11] LABS: BASOPHILS 0.2 % (0-2); EOSINOPHILS 0.6 % (0-7); HEMOGLOBIN 14.2 g/dL (12-16); IMMATURE GRANULOCYTES 0.2 % (0-5); LYMPHOCYTES 29.8 % (15-50); MCH 32.6 pg (26.0-34.0); MCHC 35.5 g/dL (31.0-37.0); MEAN PLATELET VOLUME 8.9 fL (7.4-10.4); MONOCYTES 9.6 % (2-11); NEUTROPHILS 59.6 % (40-80); PLATELET COUNT 256 10x3/uL (130-400); RBC 4.35 10x6/uL (4.00-5.40); RDW 13.2 % (11.5-14.5); WBC 8.4 10x3/uL (4.8-10.8)
[2019-05-08 16:12] LABS: BILIRUBIN NEGATIVE (NEGATIVE); GLUCOSE NEGATIVE (NEGATIVE); KETONE NEGATIVE (NEGATIVE); NITRITE NEGATIVE (NEGATIVE); RED CELLS - URINE 0-5 /hpf (0-5); UROBILINOGEN NORMAL (NORMAL); WHITE CELLS - URINE 25-50 /hpf (NEGATIVE)
[2019-05-08 16:13] LABS: BACTERIA MODERATE /hpf (NEGATIVE)
[2019-05-08 16:29] LABS: CALC OSMOLALITY 264 mosm/kg (275-300); CALCIUM 8.6 mg/dL (8.5-10.1); CARBON DIOXIDE 28.1 mmol/L (21.0-32.0); CHLORIDE - SERUM 99 mmol/L (98-107); CREATININE - SERUM 0.5 mg/dL (0.6-1.3); GLUCOSE 85 mg/dL (74-106); POTASSIUM - SERUM 3.7 mmol/L (3.5-5.1); SODIUM 134 mmol/L (136-145); UREA NITROGEN 6 mg/dL (7-18); eGFR NON AFRICAN AMERICAN > 90 mL/min (90-120)
[2019-05-08 16:46] LABS: ALBUMIN 3.6 g/dL (3.4-5.0); ALKALINE PHOSPHATASE 56 U/L (30-120); ALT (SGPT) 41 U/L (10-68); BILIRUBIN - TOTAL 0.35 mg/dL (0.2-1.3); CKMB 0.6 U/L (0.0-3.6); CREATINE KINASE 50 UL (21-215); PROTEIN - SERUM 7.6 g/dL (6.4-8.2)
[2019-05-08 16:48] LABS: TROPONIN-I < 0.017 ng/mL (0.000-0.060)
[2019-05-08] MEDS ORDERED: MACROBID100 MG PO (17:52)
[2019-05-08 18:31] VITALS: BP 141/74
== END 2019-05-08 18:38 | disposition home or self-care (01) ==
LOC: D.ER 15:43
PROVIDERS: Family Medicine
DX: N39.0 Urinary tract infection, site not specified (principal); R53.1 Weakness; I10 Essential (primary) hypertension; J44.9 Chronic obstructive pulmonary disease, unspecified; Z99.81 Dependence on supplemental oxygen; Z72.0 Tobacco use